=== PATIENT | male | born 1990 | race Caucasian/White ===

== ENCOUNTER 2023-10-28 07:36 | Emergency (ER) | payer OTHER, SELFPAY ==
[2023-10-28 07:49] VITALS: BP 135/83
--- NOTE | 2023-10-28 08:26 | ED.GENMED ---
History of Present Illness
General
Chief Complaint: Musculo-Skeletal Complaint
Source: patient
Time Seen by Provider: 10/28/23 08:04
History of Present Illness
History of Present Illness:
33-year-old male presents to the emergency room complaining of pain in his right foot. Pain is located specifically in the distal foot around the second digit. Patient states he awoke with pain a couple days ago. It makes it difficult for him to
walk. No fever. No specific injury. Patient denies any change in footwear. 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
Past History
Past History
ED Past Medical History: GERD, Other (Concussion X 5, gastritis) and Other (Cannabis hyperemesis syndrome)
ED Past Surgical History: Orthopedic (Dislocated knee); Negative Appendectomy
Social History
Tobacco: Former smoker
Alcohol: None
Drug: Marijuana
Personal:
Living: with family
Employment: Employed
Family History
Family History: Other (Noncontributory)
Phy Exam
Physical Exam
Physical Exam:
General: Awake, Alert, Oriented X3. No acute distress.
Vitals: unremarkable
Head: Atraumatic
Eyes: Pupils equal, EOMI
Throat: Airway intact, no exudates
Neuro: Nonfocal
Skin: Warm, dry, no rash
Extremities: pulses equal b/l, no edema. Right foot on inspection appears grossly normal. Patient indicates that area pain is primarily at the base of the second digit. Palpation of this area does elicit some pain. Range of motion of the second
toe elicits pain. There is minimal tenderness to palpation along the more proximal foot both on the plantar surface on the dorsal surface. Capillary refill is brisk.
Course
Orders/Labs/Results
Orders:
Orders
10/28/23 08:25
Ibuprofen [Motrin] 600 mg PO NOW STA
CR Foot - Right Min 3 Views Urgent
Comment:
Reason For Exam: pain distal foot and 2nd digit
10/28/23 09:10
Cast Shoe Right-Treatment ONCE
Vital Signs
Initial and Last Documented VS:
Initial Vital Signs
Temp Pulse Resp BP Pulse Ox
98.7 F 83 18 135/83 99
10/28/23 07:49 10/28/23 07:49 10/28/23 07:49 10/28/23 07:49 10/28/23 07:49
Last Documented Vital Signs
Temp Pulse Resp BP Pulse Ox
98.7 F 63 18 137/79 99
10/28/23 07:49 10/28/23 09:25 10/28/23 09:25 10/28/23 09:25 10/28/23 09:25
MDM/Problems Addressed
Differential Diagnosis Includes:
foot fracture, gout, tendinopathy
MDM/Problems Addressed:
Patient presents with foot pain. No specific injury. 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 Imaging shows no acute fracture. Physical exam suggestive of either inflammation
to the MTP joint or the tendons inserting into the second toe. Patient placed in a hard soled. Will treat with NSAIDs. Stable for discharge
*Radiology
Radiology exam reviewed: preliminary read by ED provider (Reviewed the patient's foot x-ray and see no acute disease)
*Pulse Oximetry
Patient hypoxic: no
*Critical Care Note
Total Time (30-74mins, 75-104mins- exclusive of procedures): Not Applicable
ED Attending Note
-
Portions of this chart may have been created with voice recognition software.� Occasional wrong word or��sound alike� substitutions may have occurred due to the inherent limitations of voice recognition software.
Discharge Plan
Departure
Patient Disposition: Home (Routine Discharge)
Date of Disposition: 10/28/23
Time of Disposition: 09:10
Patient with high blood pressure during this ER visit?: Yes
Condition: Good
Discharge Problem:
Acute foot pain
Instructions: Tendinopathy (DC)
Prescriptions:
No Action
promethazine 25 mg suppository
25 mg [place] Q4H PRN (Reason: nausea and vomiting) Qty: 24 0RF
ondansetron 8 mg tablet,disintegrating
8 mg PO TID PRN (Reason: nausea and vomiting) Qty: 30 0RF
promethazine 25 mg tablet
25 mg PO Q4H PRN (Reason: nausea and vomiting) Qty: 14 0RF
pantoprazole [Protonix] 40 mg tablet,delayed release (DR/EC)
40 mg PO DAILY Qty: 20 0RF
ondansetron 4 mg tablet,disintegrating
4 mg PO Q8H PRN (Reason: nausea and vomiting) 40 Days Qty: 20 0RF
ondansetron 4 mg tablet,disintegrating
4 mg PO Q8H PRN (Reason: nausea and vomiting) Qty: 10 0RF
pantoprazole [Protonix] 40 mg tablet,delayed release (DR/EC)
40 mg PO DAILY Qty: 14 0RF
Referrals:
Jack Canseco MD [Active] -
Activity Restrictions/Additional Instructions:
Your foot x-ray looks normal. I suspect you have inflammation of the tendon that connects to your 2nd toe. Use the the hard-sole shoe for the next few days. If you are not feeling better follow up with the community outreach specialist whose number is provided
on these discharge instructions.
Interventions
Interventions:
*Risk Screen - Suicide Last Done: 10/28/23 07:51
*General Assessment Last Done: 10/28/23 07:51
*Neglect/Abuse Screening Last Done: 10/28/23 07:51
ED- Fall Risk Assessment Last Done: 10/28/23 08:55
*ED COVID-19 Vaccine History Last Done: 10/28/23 09:29
*Nursing Disposition Last Done: 10/28/23 09:29
ED-Musculoskeletal Assessment Last Done: 10/28/23 08:55
Discharge Date and Time
Discharge Date/Time: 10/28/23 09:30
Print Language: SWAZI
[2023-10-28] MEDS: MOTRIN 600 MG PO (08:39)
[2023-10-28 09:25] VITALS: BP 137/79
== END 2023-10-28 09:30 | disposition home or self-care (01) ==
LOC: EMR 07:36
PROVIDERS: EMERGENCY PHYSICIAN Emergency Medicine; FAMILY PHYSICIAN Internal Medicine
DX: M79.671 Pain in right foot (principal); K21.9 Gastro-esophageal reflux disease without esophagitis; Z87.19 Personal history of other diseases of the digestive system; Z87.891 Personal history of nicotine dependence; Z90.49 Acquired absence of other specified parts of digestive tract
CPT/HCPCS: 99283; 73630; 96374; 96375; 99282

== ENCOUNTER → 2023-11-18 07:03 | Outpatient (REF) | payer OTHER, SELFPAY ==
[2023-11-18 09:51] LABS: % Immature Granulocytes 0.2 % (0-0.5); % Lymphocytes 43.3 % (20.5-51.1); % Monocytes 9.4 % (1.7-9.3); % Neutrophils 43.1 % (42.2-75.2); Absolute Basophils 0.1 10^3/uL (0-0.2); Absolute Eosinophils 0.2 10^3/uL (0-0.7); Absolute Lymphocytes 2.5 10^3/uL (1.2-3.4); Absolute Monocytes 0.5 10^3/uL (0.1-0.6); Absolute Neutrophils 2.5 10^3/uL (1.4-6.5); Hematocrit 44.7 % (39.0-52.0); Hemoglobin 15.8 g/dL (13.0-18.0); Mean Corp Hgb Conc. 35.3 g/dL (33.0-37.0); Mean Corpuscular Hgb 31.7 pg (27.0-31.0); Mean Corpuscular Volume 89.8 fL (80.0-94.0); Mean Platelet Volume 9.5 fL (7.4-10.4); Nucleated Red Blood Cells % 0 % (-); Platelet Count 259 10^3/uL (130-400); Red Blood Cell Count 4.98 10^6/uL (4.70-6.10); Red Cell Dist. Width 12.2 % (11.5-14.5); White Blood Cell Count 5.7 10^3/uL (4.8-10.8)
[2023-11-18 10:07] LABS: ALT (SGPT) 19 U/L (0-50); AST (SGOT) 26 U/L (17-59); Albumin 4.8 g/dl (3.5-5.0); Alkaline Phosphatase 70 U/L (38-126); Blood Urea Nitrogen 10 mg/dl (9-20); Calcium 9.9 mg/dl (8.4-10.2); Carbon Dioxide 27 mmol/L (22-30); Chloride 104 mmol/L (98-107); Glucose 105 mg/dl (70-99); HDL Cholesterol 50 mg/dl; LDL Cholesterol, Calculated 164 mg/dl; Potassium 4.1 mmol/L (3.5-5.1); Sodium 142 mmol/L (135-145); Total Bilirubin 0.6 mg/dl (0.2-1.3); Total Cholesterol 233 mg/dl (50-199); Total Protein 7.4 g/dl (6.3-8.2); Triglyceride 98 mg/dl (10-149); Very Low Density Lipoprotein 19 mg/dl (0-30); eGFR > 60.00
[2023-11-18 10:37] LABS: TSH Reflex To Free T4 0.96 uIU/ml (0.47-4.68)
== END ==
LOC: HWLAB 07:03
PROVIDERS: ATTENDING PHYSICIAN Internal Medicine
DX: Z00.00 Encounter for general adult medical examination without abnormal findings (principal)
CPT/HCPCS: 36415; 80053; 80061; 84443; 85025

== ENCOUNTER 2023-12-23 04:26 | Emergency (ER) | payer OTHER, SELFPAY ==
[2023-12-23 04:27] VITALS: BMI 27.5
[2023-12-23 04:30] VITALS: BP 160/97
--- NOTE | 2023-12-23 04:49 | ED.GENMED ---
History of Present Illness
General
Chief Complaint: Abdominal Symptoms
Source: patient
Exam Limitations: none
Time Seen by Provider: 12/23/23 04:36
History of Present Illness
History of Present Illness:
Pt is a 33 y/o M with pmhx of GERD and cannabinoid hyperemesis syndrome presents with complaints of vomiting and diffuse abdominal pain x 14 hrs. The pt reported that he smoked marijuana 2 days ago and woke up this morning with severe vomiting and
abdominal pain. He reports seeing blood and bile in his vomit. He has been unable to keep down liquids or foods. His last meal was wednesday night. He has associated headache, sore throat, and photophobia. Denies diarrhea, constipation, chest pain,
SOB, and cough. The pt has been seen here multiple times in the past for cannabinoid hyperemesis syndrome and he presents with similar symptoms today.
Past History
Past History
ED Past Medical History: GERD, Other (Concussion X 5, gastritis) and Other (Cannabis hyperemesis syndrome)
ED Past Surgical History: Orthopedic (Dislocated knee); Negative Appendectomy
Social History
Tobacco: Former smoker
Alcohol: None
Drug: Marijuana
Personal:
Living: with family
Employment: Employed
Family History
Family History: Other (Noncontributory)
Review of Systems
Review of Systems
Allergies reviewed?: Yes
Constitutional: Reports fatigue
EENT: Reports sore throat
Respiratory: Reports hemoptysis
Cardiac: Reports no symptoms
ABD/GI: Reports abdominal pain and vomiting
: Reports no symptoms
Musculoskeletal: Reports no symptoms
Skin: Reports no symptoms
Neurological: Reports no symptoms
Endocrine: Reports no symptoms
Hematologic/Lymphatic: Reports no symptoms
Psychiatric: Reports no symptoms
Phy Exam
General Physical Exam
General Presentation: well appearing and mild distress
General age: appears stated age
General Skin: warm and dry
General Habitus: normal
General Mental: alert
General Hydration: dry mucous membranes
ENT Exam
ENT Exam: EOMI, neck supple and pharyngeal erythema
Eye Exam
Eye Exam: PERRL, EOMI, cornea clear and conjunctiva normal
Cardiovascular Exam
Cardiovascular Exam: regular rate/rhythm and normal peripheral pulses
Pulmonary Exam
Pulmonary Exam: lungs clear, no respiratory distress, no rales, chest non tender, no crackles, no rhonchi, no stridor, no wheezing and no cough
Gastrointestinal Exam
Gastrointestinal Exam: normal bowel sounds, soft and non distended
Palpation: generalized: Mild tenderness
Neurological Exam
Neurological Exam: alert, oriented x3, CN II-XII intact, no motor deficits, normal reflexs, no sensory deficits and speech normal
Musculoskeletal Exam
Musculoskeletal Exam: full ROM, no edema and neuro vasc intact
Skin Exam
Skin Exam: normal color and warm/dry
Psychiatric Exam
Psychiatric Exam: normal mood/affect
Course
Orders/Labs/Results
Orders:
Orders
12/23/23 05:11
Lactated Ringers [Lr] 1,000 ml IV BOLUS
12/23/23 05:25
COVID-19 Antigen Urgent
Source: Nasal Swab
Complete Blood Count/With Diff Urgent
Comprehensive Metabolic Panel Urgent
Lipase Urgent
12/23/23 05:35
Promethazine [Phenergan] 25 mg 0.9% Sodium Chloride 50 ml [Nss] 50 ml IV NOW
12/23/23 06:07
Electrocardiogram (*1) Urgent
Reason for Study: QTc Monitoring
Haloperidol Lactate [Haldol] 5 mg IV NOW STA
12/23/23 06:08
EKG- Treatment ONCE
Abnormal Lab Results
12/23/23
05:25
Absolute Lymphs (auto) 0.8 L 10^3/uL
(1.2-3.4)
Neutrophils % 80.5 H %
(42.2-75.2)
Lymphocytes % 12.4 L %
(20.5-51.1)
Glucose 164 H mg/dl
(70-99)
Calcium 10.6 H mg/dl
(8.4-10.2)
Total Protein 8.8 H g/dl
(6.3-8.2)
Albumin 5.5 H g/dl
(3.5-5.0)
12/23/23 05:25
12/23/23 05:25
Vital Signs
Initial and Last Documented VS:
Initial Vital Signs
Pulse Resp BP Pulse Ox
73 18 160/97 97
12/23/23 04:30 12/23/23 04:30 12/23/23 04:30 12/23/23 04:30
Last Documented Vital Signs
Pulse Resp BP Pulse Ox
73 18 152/106 96
12/23/23 04:30 12/23/23 04:30 12/23/23 06:00 12/23/23 06:30
MDM/Problems Addressed
Differential Diagnosis Includes:
Hyperemesis
*Critical Care Note
Total Time (30-74mins, 75-104mins- exclusive of procedures): Not Applicable
Update Note
Update Note:
12/23/23, 0647: Pt reported improvement in symptoms with Phenergan. His only complaint is his sore throat.
ED Attending Note
-
Portions of this chart may have been created with voice recognition software.� Occasional wrong word or��sound alike� substitutions may have occurred due to the inherent limitations of voice recognition software.
Discharge Plan
Departure
Patient Disposition: Home (Routine Discharge)
Date of Disposition: 12/23/23
Time of Disposition: 06:50
Patient with high blood pressure during this ER visit?: No
Condition: Good
Discharge Problem:
Nausea & vomiting
Instructions: Nausea and Vomiting, Adult (DC), BLOOD PRESSURE
Prescriptions:
New
ondansetron HCl 4 mg tablet
4 mg PO Q8H PRN (Reason: nausea and vomiting) Qty: 20 0RF
No Action
promethazine 25 mg suppository
25 mg [place] Q4H PRN (Reason: nausea and vomiting) Qty: 24 0RF
ondansetron 8 mg tablet,disintegrating
8 mg PO TID PRN (Reason: nausea and vomiting) Qty: 30 0RF
promethazine 25 mg tablet
25 mg PO Q4H PRN (Reason: nausea and vomiting) Qty: 14 0RF
pantoprazole [Protonix] 40 mg tablet,delayed release (DR/EC)
40 mg PO DAILY Qty: 20 0RF
ondansetron 4 mg tablet,disintegrating
4 mg PO Q8H PRN (Reason: nausea and vomiting) 40 Days Qty: 20 0RF
ondansetron 4 mg tablet,disintegrating
4 mg PO Q8H PRN (Reason: nausea and vomiting) Qty: 10 0RF
pantoprazole [Protonix] 40 mg tablet,delayed release (DR/EC)
40 mg PO DAILY Qty: 14 0RF
Referrals:
Vish Quach I., DO [Family Provider] -
Interventions
Interventions:
*Risk Screen - Suicide Last Done: 12/23/23 04:30
*General Assessment Last Done: 12/23/23 04:30
*Neglect/Abuse Screening Last Done: 12/23/23 04:30
ED- Fall Risk Assessment Last Done: 12/23/23 06:24
*ED COVID-19 Vaccine History Last Done: 12/23/23 06:04
QQ-Rsefim-Ivyjdqxatg Assessment Last Done: 12/23/23 06:04
Discharge Date and Time
Print Language: SYRIAC
[2023-12-23 05:12] VITALS: BP 160/95
[2023-12-23] MEDS: LR 1000 IV (05:33)
[2023-12-23 05:37] LABS: % Basophils 0.1 % (0-2); % Immature Granulocytes 0.4 % (0-0.5); % Lymphocytes 12.4 % (20.5-51.1); % Monocytes 6.6 % (1.7-9.3); % Neutrophils 80.5 % (42.2-75.2); Absolute Lymphocytes 0.8 10^3/uL (1.2-3.4); Absolute Monocytes 0.5 10^3/uL (0.1-0.6); Absolute Neutrophils 5.4 10^3/uL (1.4-6.5); Hematocrit 44.5 % (39.0-52.0); Hemoglobin 15.7 g/dL (13.0-18.0); Mean Corp Hgb Conc. 35.3 g/dL (33.0-37.0); Mean Corpuscular Hgb 29.8 pg (27.0-31.0); Mean Corpuscular Volume 84.4 fL (80.0-94.0); Mean Platelet Volume 9.4 fL (7.4-10.4); Nucleated Red Blood Cells % 0 % (-); Platelet Count 293 10^3/uL (130-400); Red Blood Cell Count 5.27 10^6/uL (4.70-6.10); Red Cell Dist. Width 12.2 % (11.5-14.5); White Blood Cell Count 6.8 10^3/uL (4.8-10.8)
[2023-12-23 05:53] LABS: COVID-19 Antigen Negative (Negative)
[2023-12-23 06:00] VITALS: BP 152/106
[2023-12-23 06:02] LABS: ALT (SGPT) 21 U/L (0-50); AST (SGOT) 26 U/L (17-59); Albumin 5.5 g/dl (3.5-5.0); Alkaline Phosphatase 68 U/L (38-126); Blood Urea Nitrogen 19 mg/dl (9-20); Calcium 10.6 mg/dl (8.4-10.2); Carbon Dioxide 23 mmol/L (22-30); Chloride 99 mmol/L (98-107); Estimated Creatinine Clearance > 125 ml/min; Glucose 164 mg/dl (70-99); Lipase 70 U/L (23-300); Potassium 4.2 mmol/L (3.5-5.1); Sodium 143 mmol/L (135-145); Total Bilirubin 0.8 mg/dl (0.2-1.3); Total Protein 8.8 g/dl (6.3-8.2); eGFR > 60.00
[2023-12-23] MEDS: PHENERGAN 51 MG IV (06:03)
[2023-12-23 07:00] VITALS: BP 155/97
== END 2023-12-23 07:32 | disposition home or self-care (01) ==
LOC: EMR 04:26
PROVIDERS: EMERGENCY PHYSICIAN Emergency Medicine; FAMILY PHYSICIAN Internal Medicine
DX: R11.2 Nausea with vomiting, unspecified (principal); F12.90 Cannabis use, unspecified, uncomplicated; K21.9 Gastro-esophageal reflux disease without esophagitis; Z87.891 Personal history of nicotine dependence; Z11.52 Encounter for screening for COVID-19
CPT/HCPCS: 80053; 83690; 85025; 87811; 93005; 96365; 99284

== ENCOUNTER 2023-12-24 04:54 | Inpatient (IN) | payer OTHER, SELFPAY ==
[2023-12-23 22:24] VITALS: BP 152/100
--- NOTE | 2023-12-23 23:20 | ED.GENMED ---
History of Present Illness
General
Chief Complaint: Abdominal Symptoms
Time Seen by Provider: 12/23/23 22:37
History of Present Illness
History of Present Illness:
33-year-old male with history of marijuana abuse presenting to the emergency department for upper abdominal pain with nausea and vomiting. Patient reports symptoms have been present since yesterday afternoon. Reports that he had been smoking
marijuana up until symptom onset. Reports similar symptoms in the past, reports last episode was 2 years ago. Notes upper abdominal pain. Did notice some blood in the vomit. Denies chest pain or difficulty breathing. Denies any history of
abdominal surgeries. Denies any alcohol abuse. Last episode of vomiting was about 10 minutes ago. Denies changes in stool. Denies additional acute medical complaints
Past History
Past History
ED Past Medical History: GERD, Other (Concussion X 5, gastritis) and Other (Cannabis hyperemesis syndrome)
ED Past Surgical History: Orthopedic (Dislocated knee); Negative Appendectomy
Social History
Tobacco: Former smoker
Alcohol: None
Drug: Marijuana
Personal:
Living: with family
Employment: Employed
Family History
Family History: Other (Noncontributory)
Phy Exam
Physical Exam
Physical Exam:
General: Well-appearing, no clinical signs of dehydration, nontoxic and in no acute distress
HEENT: protecting airway
Neck: appears supple
CV: Normal heart rate, regular rhythm
Resp: No accessory muscle use, no increased work of breathing, lungs clear to auscultation bilaterally
Abd: Soft and non-distended, mild focal tenderness epigastric abdomen without rebound or guarding
Extremities: No deformities, no swelling, no erythema, pulses and sensation intact
Neuro: alert, no focal neurologic deficit
: deferred
Rectal: deferred
Psych: Normal affect
Skin: Intact
Course
Orders/Labs/Results
Orders:
Orders
12/23/23 22:50
Urinalysis Reflex To Culture Urgent
Date Specimen was Collected: 12/23/23
Time Specimen was Collected: 23:00
0.9% Sodium Chloride 1000 ml [Nss] 1,000 ml IV BOLUS
Ondansetron Injectable [Zofran] 4 mg IV NOW STA
12/23/23 22:53
Famotidine [Pepcid] 20 mg IV NOW STA
Ketorolac [Toradol] 15 mg IV NOW STA
12/23/23 23:47
Complete Blood Count/With Diff Urgent
Comprehensive Metabolic Panel Urgent
Lipase Urgent
12/24/23 00:50
Urine Microscopic Reflex Cult Urgent
12/24/23 01:09
0.9% Sodium Chloride 1000 ml [Nss] 1,000 ml IV BOLUS
12/24/23 01:10
Haloperidol Lactate [Haldol] 1 mg IV NOW STA
12/24/23 01:19
Electrocardiogram (*1) Urgent
Reason for Study: QTc Monitoring
12/24/23 01:20
EKG- Treatment ONCE
12/24/23 01:48
Promethazine [Phenergan] 12.5 mg 0.9% Sodium Chloride 50 ml [Nss] 50 ml IV NOW
12/24/23 02:00
Promethazine [Phenergan] 12.5 mg 0.9% Sodium Chloride 50 ml [Nss] 50 ml IV NOW
12/24/23 03:28
0.9% Sodium Chloride 1000 ml [Nss] 1,000 ml IV BOLUS
Abnormal Lab Results
12/23/23 12/24/23
23:47 00:50
Absolute Neuts (auto) 7.2 H 10^3/uL
(1.4-6.5)
Absolute Monos (auto) 1.0 H 10^3/uL
(0.1-0.6)
Neutrophils % 75.3 H %
(42.2-75.2)
Lymphocytes % 13.8 L %
(20.5-51.1)
Monocytes % 10.5 H %
(1.7-9.3)
Glucose 129 H mg/dl
(70-99)
Calcium 10.4 H mg/dl
(8.4-10.2)
Total Protein 8.7 H g/dl
(6.3-8.2)
Albumin 5.6 H g/dl
(3.5-5.0)
Urine Ketones 3+ A
(Negative)
Ur Occult Blood Reflex 1+ A
(Negative)
Urine Bilirubin 1+ A
(Negative)
Urine RBC 7-10 A /HPF
(0-2)
Urine Bacteria (Reflex) Few A
(Negative)
Urine Albumin (Reflex) 1+ A
(Neg - Trace)
12/23/23 23:47
12/23/23 23:47
Vital Signs
Initial and Last Documented VS:
Initial Vital Signs
Temp Pulse Resp BP Pulse Ox
98.2 F 70 18 152/100 97
12/23/23 22:24 12/23/23 22:24 12/23/23 22:24 12/23/23 22:24 12/23/23 22:24
Last Documented Vital Signs
Temp Pulse Resp BP Pulse Ox
98.2 F 74 16 139/92 96
12/23/23 22:24 12/24/23 02:45 12/24/23 02:45 12/24/23 02:00 12/24/23 02:45
MDM/Problems Addressed
MDM/Problems Addressed:
33-year-old male with history of marijuana abuse presenting to the emergency department for nausea and vomiting with upper abdominal pain. Vital signs on arrival are significant for hypertension.
On exam, patient is in no acute distress, no active emesis. Benign cardiac and pulmonary exam. On abdominal exam, mild tenderness to upper abdomen without rebound or guarding. Symptoms appear most consistent with hyperemesis cannabinoid syndrome.
On review of EMR, patient was seen this morning for the same symptoms, had interval improvement. Will repeat laboratory analysis to ensure no interval change. Will treat with IV fluids, Zofran, Toradol and reassess for improvement.
01:00 -Labs unremarkable, unchanged from prior. No leukocytosis. Patient still symptomatic, will administer additional fluids, does have ketones in his urine. Will administer Haldol.
03:30 -patient declined Haldol, had adverse reaction in the past. He had Phenergan in the past with improvement. Phenergan administered, however patient is still reporting nausea, dry heaving. At this time, patient is a failure of outpatient
therapy, intractable vomiting. Will admit for continued management given dehydration and inability to tolerate p.o.
*Critical Care Note
Total Time (30-74mins, 75-104mins- exclusive of procedures): Not Applicable
ED Attending Note
-
Portions of this chart may have been created with voice recognition software.� Occasional wrong word or��sound alike� substitutions may have occurred due to the inherent limitations of voice recognition software.
Discharge Plan
Departure
Prescriptions:
No Action
promethazine 25 mg suppository
25 mg [place] Q4H PRN (Reason: nausea and vomiting) Qty: 24 0RF
ondansetron 8 mg tablet,disintegrating
8 mg PO TID PRN (Reason: nausea and vomiting) Qty: 30 0RF
promethazine 25 mg tablet
25 mg PO Q4H PRN (Reason: nausea and vomiting) Qty: 14 0RF
pantoprazole [Protonix] 40 mg tablet,delayed release (DR/EC)
40 mg PO DAILY Qty: 20 0RF
ondansetron 4 mg tablet,disintegrating
4 mg PO Q8H PRN (Reason: nausea and vomiting) 40 Days Qty: 20 0RF
ondansetron 4 mg tablet,disintegrating
4 mg PO Q8H PRN (Reason: nausea and vomiting) Qty: 10 0RF
pantoprazole [Protonix] 40 mg tablet,delayed release (DR/EC)
40 mg PO DAILY Qty: 14 0RF
ondansetron HCl 4 mg tablet
4 mg PO Q8H PRN (Reason: nausea and vomiting) Qty: 20 0RF
Referrals:
UNKNOWN - PT DOES,NOT KNOW [Family Provider] -
Interventions
Interventions:
*Risk Screen - Suicide Last Done: 12/23/23 22:24
*General Assessment Last Done: 12/23/23 22:24
*Neglect/Abuse Screening Last Done: 12/23/23 22:24
WL-Ebpqpw-Dzsccyqrmo Assessment Last Done: 12/23/23 23:25
Discharge Date and Time
Print Language: ITALIAN
[2023-12-23 23:24] VITALS: BMI 26.8
[2023-12-23 23:27] VITALS: BP 156/97
[2023-12-23] MEDS: NSS 1000 IV (23:38)
[2023-12-23] MEDS: ZOFRAN 4 MG IV (23:38)
[2023-12-23] MEDS: TORADOL 15 MG IV (23:39)
[2023-12-23] MEDS: PEPCID 20 MG IV (23:39)
[2023-12-24] VITALS (15 sets, daily range): BP systolic 114–162; BP diastolic 72–106
[2023-12-24 00:02] LABS: % Basophils 0.1 % (0-2); % Immature Granulocytes 0.3 % (0-0.5); % Lymphocytes 13.8 % (20.5-51.1); % Monocytes 10.5 % (1.7-9.3); % Neutrophils 75.3 % (42.2-75.2); Absolute Lymphocytes 1.3 10^3/uL (1.2-3.4); Absolute Neutrophils 7.2 10^3/uL (1.4-6.5); Hemoglobin 15.8 g/dL (13.0-18.0); Mean Corp Hgb Conc. 35.9 g/dL (33.0-37.0); Mean Corpuscular Hgb 29.9 pg (27.0-31.0); Mean Corpuscular Volume 83.2 fL (80.0-94.0); Mean Platelet Volume 9.4 fL (7.4-10.4); Nucleated Red Blood Cells % 0 % (-); Platelet Count 312 10^3/uL (130-400); Red Blood Cell Count 5.29 10^6/uL (4.70-6.10); Red Cell Dist. Width 12.4 % (11.5-14.5); White Blood Cell Count 9.6 10^3/uL (4.8-10.8)
[2023-12-24 00:15] LABS: ALT (SGPT) 23 U/L (0-50); AST (SGOT) 46 U/L (17-59); Albumin 5.6 g/dl (3.5-5.0); Alkaline Phosphatase 60 U/L (38-126); Blood Urea Nitrogen 20 mg/dl (9-20); Calcium 10.4 mg/dl (8.4-10.2); Carbon Dioxide 24 mmol/L (22-30); Chloride 98 mmol/L (98-107); Estimated Creatinine Clearance > 125 ml/min; Glucose 129 mg/dl (70-99); Lipase 151 U/L (23-300); Potassium 4.1 mmol/L (3.5-5.1); Sodium 141 mmol/L (135-145); Total Bilirubin 1.1 mg/dl (0.2-1.3); Total Protein 8.7 g/dl (6.3-8.2); eGFR > 60.00
[2023-12-24 00:57] LABS: Urine Albumin 1+ (Neg - Trace); Urine Bilirubin 1+ (Negative); Urine Character Clear (Clear); Urine Color Yellow; Urine Glucose Negative (Negative); Urine Ketone 3+ (Negative); Urine Leukocyte Negative (Negative); Urine Nitrite Negative (Negative); Urine Occult Blood 1+ (Negative); Urine Specific Gravity 1.025 (<1.030); Urine Urobilinogen 1+ (Neg - 1+)
[2023-12-24 01:11] LABS: Urine Mucus Moderate
[2023-12-24 01:16] LABS: Urine White Cell 0-2 /HPF (0-5)
[2023-12-24 01:17] LABS: Urine Bacteria Few (Negative)
[2023-12-24] MEDS: NSS 1000 IV ×3 (01:17→11:02)
[2023-12-24] MEDS: PHENERGAN 50.5 MG IV (02:19)
--- NOTE | 2023-12-24 04:42 | HPS.HSE ---
Family Physician
-
Family Physician: NOT KNOW UNKNOWN - PT DOES
Chief Complaint
-
N/V, Abd Pain
History of Present Illness
Patient is a 33y M with PMH significant for cannabinoid hyperemesis who presents to ED complaining of N/V and abdominal pain x > 24 hours. Patient states that symptoms started around midday on Wednesday and have persisted / progressed since that
time. He states that he smokes marijuana daily - last use was early Wednesday. he has a prior history of hyperemesis, but notes that his last such episode was about 2 years ago.
He reports intractable N/V, no ability to tolerate PO intake for the past 36 hours. No diarrhea, fevers / chills or other focal complaints.
Medical History
Past Medical History
Past Medical History: Reports Other
Additional Past Medical History:
Cannabinoid Hyperemesis
Past Surgical History: Reports None
Social History
Tobacco: Non-smoker
Alcohol: None
Drug: Marijuana (Daily use)
Family History
Family History: Not pertinent
Allergies / Home Medications
Allergies reflects when Allergies were last updated in [facility].
Home Medications with original date entered in [facility]
Allergy/Medication List:
Allergies
Allergy/AdvReac Type Severity Reaction Status Date / Time
Sulfa (Sulfonamide Allergy Rash Verified 12/23/23 04:27
Antibiotics)
Home Medications
fluoxetine 10 mg tablet 10 mg PO DAILY 12/24/23
Review of Systems
-
History Source: Patient
A 12 point ROS was completed and negative except as noted: Yes
Constitutional: Reports Fatigue; Denies Fever or Chills
EENT: Denies Sore Throat
Respiratory: Denies Cough or Trouble Breathing
Cardiac: Denies Chest Pain or Palpitations
Abdomen/GI: Reports Abdominal Pain, Nausea, Vomiting and Anorexia; Denies Diarrhea, Constipated, Bloody Stools or Black Stools
: Denies Dysuria, Frequency or Flank Pain
Musculoskeletal: Denies Joint Pain or Edema
Neurological: Reports Headache
Physical Exam
Vital Signs
Vital Signs
Temp Pulse Resp BP Pulse Ox
98.2 F 78 21 116/73 98
12/23/23 22:24 12/24/23 03:45 12/24/23 03:45 12/24/23 03:00 12/24/23 03:45
Physical Exam
General: Other (Ill-appearing 33y M in moderate distress due to nausea / abdominal pain.)
HEENT: Other (Dry MM.)
Respiratory: Clear; No Wheezes, Rales or Rhonchi
Cardiac: S1/S2 and Regular Rhythm; No Murmur
GI: Soft, Non Distended, Normal Bowel Sounds and Other (Mildly, diffusely tender. No rebound / guarding.)
Musculoskeletal: No Clubbing, No Cyanosis and No Edema
Neuro: AO x 3
Laboratory Results
-
12/23/23 23:47
12/23/23 23:47
Laboratory Results
Total Bilirubin 1.1 mg/dl (0.2-1.3) 12/23/23 23:47
AST 46 U/L (17-59) 12/23/23 23:47
ALT 23 U/L (0-50) 12/23/23 23:47
Alkaline Phosphatase 60 U/L (38-126) 12/23/23 23:47
Lipase 151 U/L (23-300) 12/23/23 23:47
Impression/Plan
-
A/P: Patient is a 33y M with PMH significant for cannabinoid hyperemesis who presents to ED with > 24 hours of N/V and abdominal pain.
Cannabinoid Hyperemesis
- Admit for further evaluation and treatment.
- Continue supportive care including antiemetics, IVFs, pain control, etc.
- Avoid narcotics.
- Follow for clinical improvement.
- Would encourage complete cessation of THC use given history of similar severe symptoms.
Anion Gap Metabolic Acidosis
Metabolic Alkalosis
- Anion gap on initial labs is 19 with 3+ ketones in the urine.
- Likely ketoacidosis due to decreased PO intake x 2 days.
- Contraction alkalosis due to same + GI losses.
- IVFs with supplemental dextrose.
- Follow labs / lytes for improvement.
Anxiety / Depression
- Stable. Continue fluoxetine.
DVT Prophylaxis: SCDs
Code Status: Full
[2023-12-24] MEDS: TIGAN 200 MG IM (05:19)
[2023-12-24] MEDS: TORADOL 15 MG IV ×2 (05:20→18:23)
[2023-12-24] MEDS: FLUSH (NSS) 1 FLUSH IV (05:21)
[2023-12-24] MEDS: D5LR 1000 IV (05:53)
[2023-12-24 06:24] LABS: Hematocrit 39.3 % (39.0-52.0); Hemoglobin 13.9 g/dL (13.0-18.0); Mean Corp Hgb Conc. 35.4 g/dL (33.0-37.0); Mean Corpuscular Hgb 30.3 pg (27.0-31.0); Mean Corpuscular Volume 85.6 fL (80.0-94.0); Mean Platelet Volume 9.4 fL (7.4-10.4); Platelet Count 268 10^3/uL (130-400); Red Blood Cell Count 4.59 10^6/uL (4.70-6.10); Red Cell Dist. Width 12.4 % (11.5-14.5); White Blood Cell Count 8.1 10^3/uL (4.8-10.8)
[2023-12-24 06:29] LABS: Blood Urea Nitrogen 17 mg/dl (9-20); Carbon Dioxide 22 mmol/L (22-30); Chloride 105 mmol/L (98-107); Estimated Creatinine Clearance > 125 ml/min; Glucose 125 mg/dl (70-99); Magnesium 1.9 mg/dl (1.6-2.3); Sodium 141 mmol/L (135-145); eGFR > 60.00
--- NOTE | 2023-12-24 07:53 | W.PN.HOSP.TC ---
Today's Communication/Plan
-
see A/P
Assessment / Plan
Assessment / Plan
HPI: 33 yo M with PMH significant for cannabinoid hyperemesis who presented to ED complaining of N/V and abdominal pain x > 24 hours. Patient states that symptoms started around midday on Wednesday and have persisted / progressed since that
time. He stated that he smokes marijuana daily - last use was early Wednesday. He has a prior history of hyperemesis, but notes that his last such episode was about 2 years ago.
He reports intractable N/V, no ability to tolerate PO intake for the past 36 hours. No diarrhea, fevers / chills or other focal complaints.
A/P:
# Diffuse Abd pain, likely Cannabinoid Hyperemesis Syndrome
Can check UDS to confirm
Check Abd US to r/o other pathologies
Continue supportive care including antiemetics, IVFs, pain control with Tylenol and Toradol PRN, etc. Avoid narcotics.
Start trial of lidocaine cream to apply over abdomen for pain relieve. Informed to try hot shower for symptom relief.
Follow for clinical improvement.
Clears as tolerated
Would encourage complete cessation of THC use given history of similar severe symptoms.
# Mildly elevated Anion Gap Metabolic Acidosis
Likely ketoacidosis due to decreased PO intake x 2 days.
IVFs with supplemental dextrose.
Follow labs / lytes for improvement.
# Anxiety / Depression, Stable.
Continue fluoxetine.
DVT Prophylaxis: SCDs
Code Status: Full
Anticipated Discharge: 24 - 48 hours
Subjective/Interval History
-
Date of Service: December 24, 2023
Objective Data
-
Labs:
Laboratory Results
12/23/23 12/24/23
23:47 05:48
WBC 9.6 8.1
Hgb 15.8 13.9
Hct 44.0 39.3
Plt Count 312 268
Sodium 141 141
Potassium 4.1 4.0
Chloride 98 105
Carbon Dioxide 24 22
BUN 20 17
Creatinine 0.9 0.8
Glucose 129 H 125 H
Calcium 10.4 H 9.0
Total Bilirubin 1.1
AST 46
ALT 23
Alkaline Phosphatase 60
Vital Signs:
Vital Signs
Temp Pulse Resp BP Pulse Ox
36.8 C 56 19 159/95 98
12/23/23 22:24 12/24/23 07:07 12/24/23 07:07 12/24/23 05:00 12/24/23 07:07
Review of Systems
-
Abdomen/GI: Reports Abdominal Pain, Nausea and Vomiting
Physical Exam
-
General: Well Developed, Well Nourished, No Apparent Distress, Comfortable and Conversant; Negative Respiratory Distress
HEENT: Normocephalic, Atraumatic, Nose Appears Normal and Ears Appear Normal; Negative Oxygen
Respiratory: Clear to Auscultation and Non Labored Respirations; Negative Accessory Resp Muscle Use
Cardiac: Regular Rhythm and S1/S2
GI: Soft, Nondistended and Tender (diffuse)
Skin: Warm and Dry
Neuro: Awake, Alert, Oriented and AO x 3
Psych: Calm and Intact Judgement/Insight
Data Reviewed
-
Labs: Labs Reviewed by me
[2023-12-24] MEDS: LMX 4 1 APPLIC TOPICAL (08:49)
[2023-12-24] MEDS: PROZAC 10 MG PO (08:50)
[2023-12-24] MEDS: NSS (PRESERVATIVE FREE) 10 ML IV (08:51)
[2023-12-24] MEDS: PROTONIX IV 40 MG IV (08:51)
--- NOTE | 2023-12-24 12:31 | PTCARENOTE ---
pt admitted from ED to 2N. pt is a self within the room, currently receiving IVF, aaox3 and from home with his . IV capped and pt currently showering
[2023-12-24] MEDS: ZOFRAN 4 MG IV (13:05)
--- NOTE | 2023-12-24 13:49 | PTCARENOTE ---
Patient admitted from ED into room 2128. VSS, AAOx3, flat affect, c/o intractable nausea and vomiting since Wednesday r/t daily marijuana use. Patient states hospitalization for similar symptoms approximately 2 years ago. SARY cook administered -
see MAY. Patient states tenderness and cramping throughout abdomen. Patient showering in bathroom, states hot water relieves symptoms. MD updated. Patient oriented to room and call pedro.
[2023-12-24] MEDS: COMPAZINE 5 MG IV (17:15)
[2023-12-24 17:25] LABS: Amphetamines Negative (Negative); Barbiturates Negative (Negative); Benzodiazepines Negative (Negative); Buprenorphine Negative (Negative); Cocaine Negative (Negative); Marijuana Positive (Negative); Methadone Negative (Negative); Methamphetamines Negative (Negative); Opiates Negative (Negative); Phencyclidine Negative (Negative); Tricyclic Antidepressants Negative (Negative)
[2023-12-25] MEDS: NSS 1000 IV ×2 (00:56→09:54)
[2023-12-25 06:54] LABS: Hematocrit 37.8 % (39.0-52.0); Mean Corp Hgb Conc. 34.4 g/dL (33.0-37.0); Mean Corpuscular Hgb 30.2 pg (27.0-31.0); Mean Corpuscular Volume 87.9 fL (80.0-94.0); Mean Platelet Volume 9.5 fL (7.4-10.4); Platelet Count 224 10^3/uL (130-400); Red Cell Dist. Width 12.3 % (11.5-14.5); White Blood Cell Count 5.8 10^3/uL (4.8-10.8)
[2023-12-25 07:10] VITALS: BP 136/74
[2023-12-25 07:24] LABS: Blood Urea Nitrogen 14 mg/dl (9-20); Carbon Dioxide 26 mmol/L (22-30); Chloride 105 mmol/L (98-107); Estimated Creatinine Clearance > 125 ml/min; Glucose 88 mg/dl (70-99); Magnesium 2.1 mg/dl (1.6-2.3); Potassium 3.9 mmol/L (3.5-5.1); Sodium 141 mmol/L (135-145); eGFR > 60.00
[2023-12-25] MEDS: PROTONIX IV 40 MG IV (07:59)
[2023-12-25] MEDS: NSS (PRESERVATIVE FREE) 10 ML IV (07:59)
[2023-12-25] MEDS: PROZAC 10 MG PO (08:00)
[2023-12-25] MEDS: TORADOL 15 MG IV ×3 (09:49→22:19)
[2023-12-25] MEDS: ZOFRAN 4 MG IV ×3 (09:54→22:20)
--- NOTE | 2023-12-25 11:39 | W.PN.HOSP.TC ---
Today's Communication/Plan
-
see A/P
Assessment / Plan
Assessment / Plan
HPI: 33 yo M with PMH significant for cannabinoid hyperemesis who presented to ED complaining of N/V and abdominal pain x > 24 hours. Patient states that symptoms started around midday on Wednesday and have persisted / progressed since that
time. He stated that he smokes marijuana daily - last use was early Wednesday. He has a prior history of hyperemesis, but notes that his last such episode was about 2 years ago.
He reports intractable N/V, no ability to tolerate PO intake for the past 36 hours. No diarrhea, fevers / chills or other focal complaints.
A/P:
# Diffuse Abd pain, 2/2 Cannabinoid Hyperemesis Syndrome
UDS positive for marijuana
Abd US unrevealing
Continue supportive care including antiemetics, IVFs, pain control with Tylenol and Toradol PRN, etc. Avoid narcotics.
Cont trial of lidocaine cream to apply over abdomen for pain relieve. Cont hot shower for symptom relief.
Follow for clinical improvement.
Clears as tolerated
Would encourage complete cessation of THC use given history of similar severe symptoms.
# Mildly elevated Anion Gap Metabolic Acidosis, resolved
Likely ketoacidosis due to decreased PO intake x 2 days.
cont D5 NSS (pt requesting IVF with D5W)
# Anxiety / Depression, Stable.
Continue fluoxetine.
DVT Prophylaxis: SCDs
Code Status: Full
Anticipated Discharge: 24 - 48 hours
Subjective/Interval History
-
Date of Service: December 25, 2023
Objective Data
-
Labs:
Laboratory Results
12/25/23
06:16
WBC 5.8
Hgb 13.0
Hct 37.8 L
Plt Count 224
Sodium 141
Potassium 3.9
Chloride 105
Carbon Dioxide 26
BUN 14
Creatinine 0.9
Glucose 88
Calcium 9.0
Vital Signs:
Vital Signs
Temp Pulse Resp BP Pulse Ox
37.1 C 58 14 136/74 98
12/25/23 07:10 12/25/23 07:10 12/25/23 07:10 12/25/23 07:10 12/25/23 07:10
I&O
12/24/23 12/25/23 12/26/23
06:59 06:59 06:59
Intake Total 240 / 240
Balance 240 / 240
Review of Systems
-
Abdomen/GI: Reports Abdominal Pain, Nausea and Vomiting
Physical Exam
-
General: Well Developed, Well Nourished, No Apparent Distress, Comfortable and Conversant; Negative Respiratory Distress
HEENT: Normocephalic, Atraumatic, Nose Appears Normal and Ears Appear Normal; Negative Oxygen
Respiratory: Clear to Auscultation and Non Labored Respirations; Negative Accessory Resp Muscle Use
Cardiac: Regular Rhythm and S1/S2
GI: Soft, Nondistended and Tender (diffuse)
Skin: Warm and Dry
Neuro: Awake, Alert, Oriented and AO x 3
Psych: Calm and Intact Judgement/Insight
Data Reviewed
-
Ultrasound: Report Reviewed by me
Labs: Labs Reviewed by me
[2023-12-25] MEDS: NSS IV (11:53)
[2023-12-25] MEDS: D5/0.9% SODIUM CHLORIDE 1000 IV (11:53)
[2023-12-25 11:58] LABS: Glucose - Point of Care 106 mg/dl (70-99)
[2023-12-25] MEDS: LMX 4 1 APPLIC TOPICAL (12:10)
[2023-12-25] MEDS: COMPAZINE 5 MG IV (14:20)
--- NOTE | 2023-12-25 14:46 | PTCARENOTE ---
pt been having episodes of vomiting after breakfast, had a clear liquid tray, did not tolerate well PRN medications given; pt also seemed pale and sweaty BG done and it was 109; vitals within normal limits. Took several hot showers throughout shift.
[2023-12-25 15:46] VITALS: BP 158/99
--- NOTE | 2023-12-25 16:17 | CM ---
Attempted to see pt to complete initial assessment
Pt reports he doesn't feel well - nausea - + vomiting
Will attempt to see pt at another time
[2023-12-25 21:33] LABS: Amphetamines Negative (Negative); Barbiturates Negative (Negative); Benzodiazepines Negative (Negative); Buprenorphine Negative (Negative); Cocaine Negative (Negative); Marijuana Positive (Negative); Methadone Negative (Negative); Methamphetamines Negative (Negative); Opiates Negative (Negative); Phencyclidine Negative (Negative); Tricyclic Antidepressants Negative (Negative)
[2023-12-25] MEDS: BENADRYL 6.25 MG IV (22:27)
[2023-12-25 23:19] VITALS: BP 133/73
[2023-12-26] MEDS: D5/0.9% SODIUM CHLORIDE IV (00:05)
[2023-12-26] MEDS: D5/0.9% SODIUM CHLORIDE 1000 IV (01:32)
[2023-12-26] MEDS: TORADOL 15 MG IV ×3 (04:20→16:24)
[2023-12-26] MEDS: ZOFRAN 4 MG IV ×4 (04:20→22:25)
--- NOTE | 2023-12-26 04:43 | PTCARENOTE ---
Pt had no episodes of vomiting overnight. Pt stated nausea has not subsided, was medicated twice this shift for nausea & pain. VSS, safety maintained.
[2023-12-26 06:06] VITALS: BMI 27.0
[2023-12-26] MEDS: COMPAZINE 5 MG IV (06:10)
[2023-12-26 06:21] LABS: Hematocrit 42.3 % (39.0-52.0); Hemoglobin 15.1 g/dL (13.0-18.0); Mean Corp Hgb Conc. 35.7 g/dL (33.0-37.0); Mean Corpuscular Hgb 30.6 pg (27.0-31.0); Mean Corpuscular Volume 85.8 fL (80.0-94.0); Mean Platelet Volume 9.3 fL (7.4-10.4); Platelet Count 326 10^3/uL (130-400); Red Blood Cell Count 4.93 10^6/uL (4.70-6.10); Red Cell Dist. Width 11.8 % (11.5-14.5); White Blood Cell Count 8.7 10^3/uL (4.8-10.8)
[2023-12-26 06:23] LABS: Blood Urea Nitrogen 12 mg/dl (9-20); Calcium 9.8 mg/dl (8.4-10.2); Carbon Dioxide 20 mmol/L (22-30); Chloride 103 mmol/L (98-107); Estimated Creatinine Clearance > 125 ml/min; Glucose 129 mg/dl (70-99); Magnesium 1.9 mg/dl (1.6-2.3); Potassium 3.4 mmol/L (3.5-5.1); Sodium 139 mmol/L (135-145); eGFR > 60.00
[2023-12-26 07:35] VITALS: BP 163/88
--- NOTE | 2023-12-26 08:10 | W.PN.HOSP.TC ---
Today's Communication/Plan
-
see A/P
Assessment / Plan
Assessment / Plan
HPI: 33 yo M with PMH significant for cannabinoid hyperemesis who presented to ED complaining of N/V and abdominal pain x > 24 hours. Patient states that symptoms started around midday on Wednesday and have persisted / progressed since that
time. He stated that he smokes marijuana daily - last use was early Wednesday. He has a prior history of hyperemesis, but notes that his last such episode was about 2 years ago.
He reports intractable N/V, no ability to tolerate PO intake for the past 36 hours. No diarrhea, fevers / chills or other focal complaints.
A/P:
# Diffuse Abd pain, 2/2 Cannabinoid Hyperemesis Syndrome
# Anion Gap Metabolic Acidosis likely due to persistent vomiting
UDS positive for marijuana
Abd US unrevealing
Continue supportive care including antiemetics, pain control with Tylenol and Toradol PRN, etc. Avoid narcotics.
Continue IVF with bicarb
Cont trial of lidocaine cream to apply over abdomen for pain relieve. Cont hot shower for symptom relief.
Follow clinical improvement.
Clears as tolerated
Would encourage complete cessation of THC use given history of similar severe symptoms.
# Hypokalemia
replete K IV
# Anxiety / Depression, Stable.
Continue fluoxetine.
DVT Prophylaxis: SCDs
Code Status: Full
DW RN
Anticipated Discharge: 24 - 48 hours
Subjective/Interval History
-
Date of Service: December 26, 2023
Objective Data
-
Labs:
Laboratory Results
12/26/23 12/26/23
05:24 05:25
WBC 8.7
Hgb 15.1
Hct 42.3
Plt Count 326 D
Sodium 139
Potassium 3.4 L
Chloride 103
Carbon Dioxide 20 L
BUN 12
Creatinine 0.9
Glucose 129 H
Calcium 9.8
Vital Signs:
Vital Signs
Temp Pulse Resp BP Pulse Ox
37.2 C 60 16 133/73 98
12/25/23 23:19 12/25/23 23:19 12/25/23 23:19 12/25/23 23:19 12/25/23 23:19
I&O
12/25/23 12/26/23 12/27/23
06:59 06:59 06:59
Intake Total 240 / 240 3095 / 3095
Balance 240 / 240 3095 / 3095
Review of Systems
-
Abdomen/GI: Reports Abdominal Pain, Nausea and Vomiting
Physical Exam
-
General: Well Developed, Well Nourished, No Apparent Distress, Comfortable and Conversant; Negative Respiratory Distress
HEENT: Normocephalic, Atraumatic, Nose Appears Normal and Ears Appear Normal; Negative Oxygen
Respiratory: Clear to Auscultation and Non Labored Respirations; Negative Accessory Resp Muscle Use
Cardiac: Regular Rhythm and S1/S2
GI: Soft, Nondistended and Tender (diffuse)
Skin: Warm and Dry
Neuro: Awake, Alert, Oriented and AO x 3
Psych: Calm and Intact Judgement/Insight
Data Reviewed
-
Ultrasound: Report Reviewed by me
Labs: Labs Reviewed by me
[2023-12-26] MEDS: KCL 270 MEQ IV (08:19)
[2023-12-26] MEDS: NSS (PRESERVATIVE FREE) 10 ML IV (08:38)
[2023-12-26] MEDS: PROTONIX IV 40 MG IV (08:38)
[2023-12-26] MEDS: PROZAC 10 MG PO (08:38)
--- NOTE | 2023-12-26 11:56 | CM ---
Met with pt at bedside to complete initial assessment
Pt reports he lives in a 2 story home with his , son and 2 daughters
Independent, Works FT, drives
DME - none
SNF/HH - denies past hx
Has ride home at discharge
PCP - Chris Quach
Pharm - [facility]
Plan - anticipate home no needs
[2023-12-26] MEDS: SODIUM BICARBONATE 1150 MEQ IV ×2 (13:16→21:52)
[2023-12-26 15:00] VITALS: BP 143/86
[2023-12-26 23:09] VITALS: BP 146/82
[2023-12-27] MEDS: BENADRYL 25 MG PO (01:47)
[2023-12-27 06:00] VITALS: BMI 26.9
[2023-12-27 06:20] LABS: Hematocrit 40.2 % (39.0-52.0); Hemoglobin 14.6 g/dL (13.0-18.0); Mean Corp Hgb Conc. 36.3 g/dL (33.0-37.0); Mean Corpuscular Hgb 31.1 pg (27.0-31.0); Mean Corpuscular Volume 85.7 fL (80.0-94.0); Mean Platelet Volume 9.3 fL (7.4-10.4); Platelet Count 263 10^3/uL (130-400); Red Blood Cell Count 4.69 10^6/uL (4.70-6.10); Red Cell Dist. Width 11.6 % (11.5-14.5); White Blood Cell Count 5.8 10^3/uL (4.8-10.8)
[2023-12-27 06:51] LABS: Blood Urea Nitrogen 13 mg/dl (9-20); Calcium 9.2 mg/dl (8.4-10.2); Carbon Dioxide 30 mmol/L (22-30); Chloride 96 mmol/L (98-107); Estimated Creatinine Clearance > 125 ml/min; Glucose 87 mg/dl (70-99); Magnesium 1.9 mg/dl (1.6-2.3); Potassium 3.4 mmol/L (3.5-5.1); Sodium 137 mmol/L (135-145); eGFR > 60.00
[2023-12-27 07:15] VITALS: BP 126/75
[2023-12-27] MEDS: PROZAC 10 MG PO (07:33)
[2023-12-27] MEDS: NSS (PRESERVATIVE FREE) 10 ML IV (07:33)
[2023-12-27] MEDS: PROTONIX IV 40 MG IV (07:33)
[2023-12-27] MEDS: SODIUM BICARBONATE 1150 MEQ IV (07:58)
[2023-12-27] MEDS: KCL 270 MEQ IV (07:58)
[2023-12-27] MEDS: VALIUM 2 MG PO ×2 (08:11→12:23)
[2023-12-27] MEDS: REGLAN 10 MG IV (08:11)
--- NOTE | 2023-12-27 08:15 | W.PN.HOSP.TC ---
Today's Communication/Plan
-
no vomiting overnight, yesterday did not tolerate diet - reattempt today
potassium
Reglan
valium
avoid NSAIDs
Assessment / Plan
Assessment / Plan
33yo with PMHx of MDD and medical marijuana use came with nausea and vomiting with minor hematemesis on admission. Symptoms similar to the previous episodes when he was diagnosed cannabinoid hyperemesis syndrome. US abd unremarkable for acute
findings, lipase neg, had very slow immprovement in symptoms. No more hematemesis with stable hgb. Patient had Hx of EGD 2-3years ago as per patient - without significant findings.
A/P:
#Cannabis hyperemesis syndrome
antiemmetics
hydration
advance diet as tolerated
Counseled on abstinence from cannabinoids
#Hematemesis on admission
resolved
probably Roula-Nithin
No odynophagia noted
Recommended outpatient EGD - patient will schedule with established GI - he verbalized understanding
PPI
Avoid NSAIDs since might cause worsening of gastritis and worsening of the epigastric pain
#MDD
not depressed
cont home meds
#Hypokelemia
replete and follow
DVT ppx SCDs
Full code
I have spent at least 58min reviewing chart, test results, communicating with consultants and direct patient care
Anticipated Discharge: Within 24 hours
Subjective/Interval History
-
Date of Service: December 27, 2023
Objective Data
-
Labs:
Laboratory Results
12/27/23
05:43
WBC 5.8
Hgb 14.6
Hct 40.2
Plt Count 263
Sodium 137
Potassium 3.4 L
Chloride 96 L
Carbon Dioxide 30
BUN 13
Creatinine 0.9
Glucose 87
Calcium 9.2
Vital Signs:
Vital Signs
Temp Pulse Resp BP Pulse Ox
98.0 F 63 18 146/82 98
12/26/23 23:09 12/26/23 23:09 12/26/23 23:09 12/26/23 23:09 12/26/23 23:09
I&O
12/26/23 12/27/23 12/28/23
06:59 06:59 06:59
Intake Total 4055 / 4055 970 / 970
Balance 4055 / 4055 970 / 970
Review of Systems
-
History Source: Patient
All other systems: Reviewed and negative
Abdomen/GI: Reports Abdominal Pain (epigastric), Nausea and Vomiting
Physical Exam
-
General: No Apparent Distress
HEENT: Moist Mucous Membranes
GI: Soft, Nondistended, Normal Bowel Sounds, Tender (in epigastric are) and Other (passing gas)
Musculoskeletal: No Clubbing, No Cyanosis and No Edema
Neuro: Awake, Alert, Oriented, AO x 3 and Nonfocal/Grossly Intact
Psych: Calm
[2023-12-27 08:45] LABS: TSH Reflex To Free T4 0.47 uIU/ml (0.47-4.68)
[2023-12-27 08:55] LABS: Glycohemoglobin (HgbA1c) 5.4 % (4.0-5.6)
[2023-12-27] MEDS: ZOFRAN 4 MG IV (12:24)
--- NOTE | 2023-12-27 13:03 | CM ---
Patient seen at bedside.
advance diet as tolerated.
CM gave authorization to release medical records form to patient.
no anticipated needs.
PLAN: Discharge to home when stable, no needs anticipated.
--- NOTE | 2023-12-27 15:02 | W.DCSUMMARY ---
Discharge Summary
Discharge Data
Date of Admission: 12/24/23
Date of Discharge: 12/27/23
-
Pending Results: No
Hospital Course
33yo with PMHx of MDD and medical marijuana use came with nausea and vomiting with minor hematemesis on admission. Symptoms similar to the previous episodes when he was diagnosed cannabinoid hyperemesis syndrome. US abd unremarkable for acute
findings, lipase neg, had very slow immprovement in symptoms. No more hematemesis with stable hgb. Patient had Hx of EGD 2-3years ago as per patient - without significant findings. Tolerated food and liquis orally without vomiting on the day of
D/C. Upon d/c use few doses of Valium and Zofran if still symptomatic. Medically stable for d/c
I have spent at least 38min discharging the patient
Patient was managed for:
#Cannabis hyperemesis syndrome
#Hematemesis on admission
#MDD
#Hypokalemia
Discharge Plan
-
Patient Disposition: Home (Routine Discharge)
Discharge Diagnosis/Procedures: cannabinoid hyperemesis
Diet: As tolerated
Activity: As tolerated
Driving Restrictions: As prior to admission
Referrals:
UNKNOWN - PT DOES,NOT KNOW [Family Provider] -
Prescriptions:
New
diazepam [Valium] 2 mg tablet
2 mg PO BIDPRN PRN (Reason: nausea) Qty: 4 0RF
ondansetron 4 mg tablet,disintegrating
4 mg PO Q8H PRN (Reason: nausea and vomiting) Qty: 9 0RF
pantoprazole 40 mg tablet,delayed release (DR/EC)
40 mg PO DAILY Qty: 30 0RF
Continued
fluoxetine 10 mg Tablet
10 mg PO DAILY
Discharge Orders:
Discharge Patient (As Directed); Ordered 12/27/23
Ordered By: Maicol Sutherland
Discharge Date and Time
Print Language: AMERICAN
[2023-12-27 15:10] VITALS: BP 148/82
--- NOTE | 2023-12-27 16:42 | PTCARENOTE ---
Patient discharged home. This RN removed patient's IV and reviewed discharge instructions with patient and patient's mother at bedside, both verbalize understanding. Paper scripts for PO zofran and valium per MD handed to patient by this RN. Patient
gathered belongings in room and dressed independently. Patient being transported home by mother, taken down to car at [facility] via staff escort and wheelchair.
[2023-12-27 16:46] VITALS: BP 148/82
== END 2023-12-27 17:06 | disposition home or self-care (01) | DRG 896 ==
LOC: 2 NORTH 04:54
PROVIDERS: Internal Medicine; ADMITTING PHYSICIAN Hospitalist; ATTENDING PHYSICIAN Internal Medicine; EMERGENCY PHYSICIAN Student in an Organized Health Care Education/Training Program
DX: F12.188 Cannabis abuse with other cannabis-induced disorder (principal); K22.6 Gastro-esophageal laceration-hemorrhage syndrome; E87.4 Mixed disorder of acid-base balance; F32.9 Major depressive disorder, single episode, unspecified; R11.2 Nausea with vomiting, unspecified; E87.6 Hypokalemia; F41.9 Anxiety disorder, unspecified; K21.9 Gastro-esophageal reflux disease without esophagitis; Z79.899 Other long term (current) drug therapy; Z87.19 Personal history of other diseases of the digestive system; Z87.891 Personal history of nicotine dependence
CPT/HCPCS: 76700; 80048; 80053; 80306; 81003; 81015; 82962; 83036; 83690; 83735; 84100; 84443; 85025; 85027; 93005; 96361; 96365; 96375; 99285

== ENCOUNTER 2024-06-22 09:20 | Emergency (ER) | payer OTHER, SELFPAY ==
[2024-06-22 09:28] VITALS: BP 164/96
[2024-06-22] MEDS: ZOFRAN 4 MG IV ×2 (10:36→12:19)
[2024-06-22] MEDS: ATIVAN 1 MG IV (10:36)
[2024-06-22] MEDS: NSS 1000 IV (10:36)
--- NOTE | 2024-06-22 10:52 | ED.GENMED ---
History of Present Illness
General
Chief Complaint: Abdominal Symptoms
Source: patient
Exam Limitations: none
Time Seen by Provider: 06/22/24 10:18
Nursing documentation reviewed up to this point in time: agreed with
History of Present Illness
History of Present Illness:
Patient with history of cannabinoid induced hyperemesis syndrome, who is currently still utilizing marijuana daily, presents to ED secondary to persistent nausea and vomiting, shortly after having tuna bites for lunch yesterday afternoon. Denies
fever or chills. Denies diarrhea. Denies abdominal pain. Denies chest pain. Denies shortness of breath. Denies dizziness. Patient states that his symptoms are similar to previous episodes related to cannabinoid hyperemesis syndrome.
Past History
Past History
ED Past Medical History: GERD, Other (Concussion X 5, gastritis) and Other (Cannabis hyperemesis syndrome)
ED Past Surgical History: Orthopedic (Dislocated knee); Negative Appendectomy
Social History
Tobacco: Former smoker
Alcohol: None
Drug: Marijuana
Personal:
Living: with family
Employment: Employed
Family History
Family History: Other (Noncontributory)
Review of Systems
Review of Systems
Allergies reviewed?: Yes
All Other Systems: ROS reviewed and negative except as documented in HPI and ROS
Constitutional: Reports no symptoms; Denies fever or chills
Respiratory: Reports no symptoms; Denies trouble breathing
Cardiac: Reports no symptoms; Denies palpitations
ABD/GI: Reports nausea and vomiting; Denies abdominal pain or diarrhea
Musculoskeletal: Reports no symptoms
Neurological: Reports no symptoms; Denies dizzy or headache
Phy Exam
Physical Exam
Physical Exam:
Physical Exam
General: no apparent distress, not acutely ill. afebrile
Head: nc/at. eomi
Neck: supple. normal range of motion.
Heart: s1/s2 regular rate and rhythm, no murmur.
Lungs: no acute respiratory distress. clear bilaterally
Abdomen: normal bowel sounds. not tender. no distention
Neuro: alert and oriented x 3. no focal neurological deficits
Skin: no rash
Psychiatric: well kept. interactive and cooperative
Extremities: no edema. no calf tenderness.
Course
Orders/Labs/Results
Orders:
Orders
06/22/24 10:30
0.9% Sodium Chloride 1000 ml [Nss] 1,000 ml IV BOLUS
Lorazepam [Ativan] 1 mg IV NOW STA
Ondansetron Injectable [Zofran] 4 mg IV NOW STA
06/22/24 10:35
Complete Blood Count/With Diff Urgent
Comprehensive Metabolic Panel Urgent
Magnesium Urgent
06/22/24 12:02
Ondansetron Injectable [Zofran] 4 mg IV NOW STA
Pantoprazole [Protonix IV] 40 mg IV NOW STA
06/22/24 12:03
Lactated Ringers [Lr] 500 ml IV BOLUS
Abnormal Lab Results
06/22/24
10:35
WBC 12.3 H 10^3/uL
(4.8-10.8)
Absolute Neuts (auto) 9.4 H 10^3/uL
(1.4-6.5)
Absolute Monos (auto) 1.3 H 10^3/uL
(0.1-0.6)
Neutrophils % 76.7 H %
(42.2-75.2)
Lymphocytes % 11.9 L %
(20.5-51.1)
Monocytes % 10.9 H %
(1.7-9.3)
BUN 22 H mg/dl
(9-20)
Glucose 159 H mg/dl
(70-99)
Calcium 11.0 H mg/dl
(8.4-10.2)
Total Protein 9.4 H g/dl
(6.3-8.2)
Albumin 5.6 H g/dl
(3.5-5.0)
06/22/24 10:35
06/22/24 10:35
Vital Signs
Initial and Last Documented VS:
Initial Vital Signs
Temp Pulse Resp BP Pulse Ox
98.4 F 89 18 164/96 97
06/22/24 09:28 06/22/24 09:28 06/22/24 09:28 06/22/24 09:28 06/22/24 09:28
Last Documented Vital Signs
Temp Pulse Resp BP Pulse Ox
98.4 F 89 18 164/96 97
06/22/24 09:28 06/22/24 09:28 06/22/24 09:28 06/22/24 09:28 06/22/24 09:28
MDM/Problems Addressed
MDM/Problems Addressed:
Patient reports improvement in symptoms after treatment, and is without any further vomiting episodes during observation ED. Patient otherwise remains afebrile, hemodynamically stable, and nontoxic-appearing. Repeat abdominal exam: Soft and
nontender. Patient with likely recurrent vomiting episodes secondary to continual use of marijuana. No indication for any further work up at this time. As such, patient strongly recommended to stop utilizing marijuana along with continual
hydration at home.
*Critical Care Note
Total Time (30-74mins, 75-104mins- exclusive of procedures): Not Applicable
ED Attending Note
-
Portions of this chart may have been created with voice recognition software.� Occasional wrong word or��sound alike� substitutions may have occurred due to the inherent limitations of voice recognition software.
Discharge Plan
Departure
Patient Disposition: Home (Routine Discharge)
Date of Disposition: 06/22/24
Time of Disposition: 12:16
Patient with high blood pressure during this ER visit?: Yes
Discharge Problem:
Nausea & vomiting
Instructions: Nausea and Vomiting, Adult (DC)
Prescriptions:
New
ondansetron 4 mg Tablet,Disintegrating
4 mg PO TIDPRN PRN (Reason: nausea/vomiting) Qty: 12 0RF
No Action
fluoxetine 10 mg Tablet
10 mg PO DAILY
diazepam [Valium] 2 mg tablet
2 mg PO BIDPRN PRN (Reason: nausea) Qty: 4 0RF
ondansetron 4 mg tablet,disintegrating
4 mg PO Q8H PRN (Reason: nausea and vomiting) Qty: 9 0RF
pantoprazole 40 mg tablet,delayed release (DR/EC)
40 mg PO DAILY Qty: 30 0RF
Referrals:
Vish Quach I., DO [Family Provider] -
Activity Restrictions/Additional Instructions:
As discussed, please follow-up with your primary care physician with any further concerns. Your prescription has been sent electronically to [facility] in [place].
Interventions
Interventions:
*Risk Screen - Suicide Last Done: 06/22/24 09:28
*General Assessment Last Done: 06/22/24 09:28
*Neglect/Abuse Screening Last Done: 06/22/24 09:28
*ED- Fall Risk Assessment Last Done: 06/22/24 11:57
*ED COVID-19 Vaccine History Last Done: 06/22/24 09:28
*Nursing Disposition Last Done: 06/22/24 13:10
GX-Uppqoz-Kkewridrah Assessment Last Done: 06/22/24 10:44
Discharge Date and Time
Discharge Date/Time: 06/22/24 13:11
Print Language: UPPER SORBIAN
[2024-06-22 10:54] LABS: % Basophils 0.2 % (0-2); % Immature Granulocytes 0.3 % (0-0.5); % Lymphocytes 11.9 % (20.5-51.1); % Monocytes 10.9 % (1.7-9.3); % Neutrophils 76.7 % (42.2-75.2); Absolute Lymphocytes 1.5 10^3/uL (1.2-3.4); Absolute Monocytes 1.3 10^3/uL (0.1-0.6); Absolute Neutrophils 9.4 10^3/uL (1.4-6.5); Hematocrit 46.8 % (39.0-52.0); Hemoglobin 16.8 g/dL (13.0-18.0); Mean Corp Hgb Conc. 35.9 g/dL (33.0-37.0); Mean Corpuscular Hgb 30.8 pg (27.0-31.0); Mean Corpuscular Volume 85.7 fL (80.0-94.0); Mean Platelet Volume 8.7 fL (7.4-10.4); Nucleated Red Blood Cells % 0 % (-); Platelet Count 349 10^3/uL (130-400); Red Blood Cell Count 5.46 10^6/uL (4.70-6.10); Red Cell Dist. Width 12.7 % (11.5-14.5); White Blood Cell Count 12.3 10^3/uL (4.8-10.8)
[2024-06-22 11:09] LABS: ALT (SGPT) 27 U/L (0-50); AST (SGOT) 41 U/L (17-59); Albumin 5.6 g/dl (3.5-5.0); Alkaline Phosphatase 72 U/L (38-126); Blood Urea Nitrogen 22 mg/dl (9-20); Carbon Dioxide 22 mmol/L (22-30); Chloride 103 mmol/L (98-107); Glucose 159 mg/dl (70-99); Magnesium 1.6 mg/dl (1.6-2.3); Potassium 4.2 mmol/L (3.5-5.1); Sodium 143 mmol/L (135-145); Total Bilirubin 1.3 mg/dl (0.2-1.3); Total Protein 9.4 g/dl (6.3-8.2); eGFR > 60.00
[2024-06-22] MEDS: LR 500 IV (12:18)
[2024-06-22] MEDS: PROTONIX IV 40 MG IV (12:19)
== END 2024-06-22 13:11 | disposition home or self-care (01) ==
LOC: EMR 09:20
PROVIDERS: EMERGENCY PHYSICIAN Emergency Medicine; FAMILY PHYSICIAN Internal Medicine
DX: R11.2 Nausea with vomiting, unspecified (principal); F12.90 Cannabis use, unspecified, uncomplicated; Z87.891 Personal history of nicotine dependence
CPT/HCPCS: 96374; 96375; 96376; 96361; 99284; 80053; 83735; 85025

== ENCOUNTER 2024-06-23 13:00 | Observation (INO) | payer OTHER, SELFPAY ==
[2024-06-23] VITALS (7 sets, daily range): BP systolic 110–177; BP diastolic 67–103; BMI 26.8; BMI 27.6
--- NOTE | 2024-06-23 09:35 | ED.GENMED ---
History of Present Illness
General
Chief Complaint: Abdominal Symptoms
Source: patient and records
Exam Limitations: none
Time Seen by Provider: 06/23/24 09:23
Nursing documentation reviewed up to this point in time: agreed with
History of Present Illness
History of Present Illness:
34-year-old male with past medical history of GERD, cyclic vomiting/cannabinoid hyperemesis, daily marijuana use presents to the ER for evaluation of nausea and vomiting, abdominal discomfort. Patient notably seen yesterday for similar�suspected to
be cannabinoid hyperemesis syndrome; he was treated symptomatically (Zofran x 2, Ativan, Protonix, IV fluids) and was discharged. He says that when he returned home he was unable to eat or drink anything and was vomiting all night and so he came
back to the emergency room this morning. He has had some epigastric discomfort. Denies fever or chills. Denies chest pain. He has headache. Denies other complaints.
Past History
Past History
ED Past Medical History: GERD, Other (Concussion X 5, gastritis) and Other (Cannabis hyperemesis syndrome)
ED Past Surgical History: Orthopedic (Dislocated knee); Negative Appendectomy
Social History
Tobacco: Former smoker
Alcohol: None
Drug: Marijuana
Personal:
Living: with family
Employment: Employed
Family History
Family History: Other (Noncontributory)
Review of Systems
Review of Systems
All Other Systems: ROS reviewed and negative except as documented in HPI and ROS
Constitutional: Denies fever or chills
Respiratory: Denies trouble breathing
Cardiac: Denies chest pain
ABD/GI: Reports abdominal pain, nausea and vomiting; Denies diarrhea or constipated
: Denies flank pain
Musculoskeletal: Denies neck pain or back pain
Neurological: Reports headache; Denies dizzy
Phy Exam
Physical Exam
Physical Exam:
General: Awake, alert, sitting in room with cloth over his eyes holding emesis bag
Head: Normocephalic, atraumatic
Eyes: Conjunctiva normal, sclera anicteric, pupils equal round and reactive to light bilaterally
Throat: Airway intact, dry mucous membranes
Neck: Trachea midline, supple without meningismus
Lungs: Clear to auscultation bilaterally, no wheezing, rales, rhonchi
Heart: Regular rate and rhythm, no murmurs, gallops, or rubs
Abd: Soft, non distended, mildly tender in the epigastrium
Neuro: No gross deficits
Skin: no rash
Extremities: No edema in extremities, equal pulses in all extremities
Scores
Heart Failure Risk
Heart Failure Risk Score: Not Applicable
Heart Score for Chest Pain Patients
STEMI patient?: Not applicable
Withdrawal Assessment of Alcohol
Withdrawal Assessment Completed?: Not applicable
Course
Orders/Labs/Results
Orders:
Orders
06/23/24 09:25
CT Abd/pelvis W Iv Cont Urgent
Comment:
Reason For Exam: abd pain, N/V
06/23/24 09:30
0.9% Sodium Chloride 1000 ml [Nss] 1,000 ml IV BOLUS
Ketorolac [Toradol] 15 mg IV NOW STA
Ondansetron Injectable [Zofran] 4 mg IV NOW STA
06/23/24 09:36
Alcohol Urgent
Complete Blood Count/With Diff Urgent
Comprehensive Metabolic Panel Urgent
Lipase Urgent
06/23/24 09:40
Electrocardiogram (*1) Urgent
Reason for Study: QTc Monitoring
EKG- Treatment ONCE
06/23/24 11:39
Ondansetron Injectable [Zofran] 4 mg IV NOW STA
06/23/24 11:42
Urine Drug Abuse Screen Routine
06/23/24 12:16
Admit/Transfer Patient As Directed
Co-Sign Provider:
Level of Care: Observation services
Assign to:: Medical/Surgical
Physician / Group: Chelsey/hospitalist
Diagnosis: N/V, suspect cyclic vomiting
Code Status As Directed
Resuscitation Status: Full Code
PRN Pain Medication Management As Directed
May give lesser potent ordered pain med per pt: Yes
preference::
Protocol:: Medication orders for pain may be administered in a
manner that supports deferring to patient preference
when the pt is:
- Requesting an ordered lesser potent pain medication.
Least to most potent pain medications are defined
as: acetaminophen < NSAID < tramadol < opioids
(morphine, oxycodone, hydromorphone).
- Requesting a lesser dose of the same medication IF
ORDERED.
- Requesting a less intrusive route of administration
if both routes are prescribed by the provider (PO <
IV).
Abnormal Lab Results
06/23/24
09:36
WBC 10.9 H 10^3/uL
(4.8-10.8)
Absolute Neuts (auto) 8.9 H 10^3/uL
(1.4-6.5)
Absolute Monos (auto) 0.7 H 10^3/uL
(0.1-0.6)
Neutrophils % 81.3 H %
(42.2-75.2)
Lymphocytes % 11.6 L %
(20.5-51.1)
BUN 22 H mg/dl
(9-20)
Glucose 142 H mg/dl
(70-99)
Calcium 10.3 H mg/dl
(8.4-10.2)
Total Bilirubin 1.5 H mg/dl
(0.2-1.3)
AST 83 H U/L
(17-59)
Total Protein 8.6 H g/dl
(6.3-8.2)
Albumin 5.2 H g/dl
(3.5-5.0)
06/23/24 09:36
06/23/24 09:36
Vital Signs
Initial and Last Documented VS:
Initial Vital Signs
Temp Pulse Resp BP Pulse Ox
36.9 C 75 18 139/103 99
06/23/24 09:10 06/23/24 09:10 06/23/24 09:10 06/23/24 09:10 06/23/24 09:10
Last Documented Vital Signs
Temp Pulse Resp BP Pulse Ox
36.9 C 85 16 177/85 98
06/23/24 09:10 06/23/24 10:36 06/23/24 10:36 06/23/24 10:36 06/23/24 10:36
MDM/Problems Addressed
Differential Diagnosis Includes:
Gastritis/enteritis, hepatitis, pancreatitis, cholelithiasis, cyclic vomiting/cannabinoid hyperemesis syndrome
MDM/Problems Addressed:
34-year-old male returns to the emergency room with nausea and vomiting, epigastric discomfort. History of multiple visits for similar�admission in December 2023 and ER visit yesterday. Previously attributed to cannabinoid hyperemesis syndrome;
admits to continued marijuana use. Last imaging of the abdomen was prior to December 2023 admission had an ultrasound of the upper abdomen which was unremarkable. Will plan to check CT of the abdomen pelvis. Check repeat labs CBC, CMP, lipase.
Provide fluids, antiemetic, Toradol for pain. Reassess after the above.
Labs reviewed: CBC shows marginal leukocytosis 10.9. CMP shows acceptable renal function. T. bili marginal, AST marginal. Lipase normal. CT abdomen pelvis shows wedge-shaped area of decreased enhancement in the left lobe of the liver which was
present on prior CT in 2019 more conspicuous today. No signs of portal venous thrombus. No evidence of mass lesion. No other acute abnormalities. Reviewed CT with GI�unlikely of acute clinical significance, will need follow-up MR as outpatient
but no emergent follow-up needed. On clinical reassessment unfortunately patient vomited again and CT after initial Zofran. He does not feel well enough to go home thinks he needs to stay in the hospital he is very concerned that even if we can
better control his symptoms that he will rebound once again. Will plan to admit for symptomatic treatment at this point given failure of outpatient management, working diagnosis is cannabinoid hyperemesis syndrome.
Chronic conditions affecting care:
Marijuana use, GERD
Acute Exacerbation and/or Progression of Chronic Illness:
Acutely hypertensive no signs or symptoms of hypertensive crisis�hold on emergent antihypertensives
Acute Exacerbation and/or Progression of Chronic Illness: HTN
*Radiology
Radiology exam reviewed: radiology read reviewed
*Pulse Oximetry
Patient hypoxic: no
*Critical Care Note
Total Time (30-74mins, 75-104mins- exclusive of procedures): Not Applicable
Data Reviewed
Review of Other/Old Records Reveals: Labs, Records and Discharge Summary
Source: records
Patient Management
Discussion with other providers: Hospitalist (Discussed with hospitalist) and Physician Scientist (Discussed with GI)
Escalation/DeEscalation of care consider admission/obs:
Admission indicated
ED Attending Note
-
Portions of this chart may have been created with voice recognition software.� Occasional wrong word or��sound alike� substitutions may have occurred due to the inherent limitations of voice recognition software.
Discharge Plan
Departure
Patient Disposition: Admit
Date of Disposition: 06/23/24
Time of Disposition: 11:36
Admit to doctor: Ena
Presentation/result/management discussed w/ accepting MD/DO: Hospitalist
Discharge Problem:
Nausea & vomiting, Dehydration
Interventions
Interventions:
*Risk Screen - Suicide Last Done: 06/23/24 09:10
*General Assessment Last Done: 06/23/24 09:10
*Neglect/Abuse Screening Last Done: 06/23/24 09:10
*ED- Fall Risk Assessment Last Done: 06/23/24 09:56
*ED COVID-19 Vaccine History Last Done: 06/23/24 09:55
FX-Ufmdtg-Rxrgvtumwl Assessment Last Done: 06/23/24 09:55
[2024-06-23] MEDS: NSS 1000 IV ×2 (09:46→15:54)
[2024-06-23] MEDS: ZOFRAN 4 MG IV ×2 (09:47→12:00)
[2024-06-23] MEDS: TORADOL 15 MG IV ×2 (09:47→22:15)
[2024-06-23 09:50] LABS: % Basophils 0.3 % (0-2); % Immature Granulocytes 0.3 % (0-0.5); % Lymphocytes 11.6 % (20.5-51.1); % Monocytes 6.5 % (1.7-9.3); % Neutrophils 81.3 % (42.2-75.2); Absolute Lymphocytes 1.3 10^3/uL (1.2-3.4); Absolute Monocytes 0.7 10^3/uL (0.1-0.6); Absolute Neutrophils 8.9 10^3/uL (1.4-6.5); Hemoglobin 15.6 g/dL (13.0-18.0); Mean Corp Hgb Conc. 35.5 g/dL (33.0-37.0); Mean Corpuscular Hgb 30.8 pg (27.0-31.0); Mean Platelet Volume 8.9 fL (7.4-10.4); Nucleated Red Blood Cells % 0 % (-); Platelet Count 299 10^3/uL (130-400); Red Blood Cell Count 5.06 10^6/uL (4.70-6.10); Red Cell Dist. Width 12.7 % (11.5-14.5); White Blood Cell Count 10.9 10^3/uL (4.8-10.8)
[2024-06-23 10:09] LABS: ALT (SGPT) 35 U/L (0-50); AST (SGOT) 83 U/L (17-59); Albumin 5.2 g/dl (3.5-5.0); Alkaline Phosphatase 65 U/L (38-126); Blood Urea Nitrogen 22 mg/dl (9-20); Calcium 10.3 mg/dl (8.4-10.2); Carbon Dioxide 27 mmol/L (22-30); Chloride 102 mmol/L (98-107); Estimated Creatinine Clearance > 125 ml/min; Glucose 142 mg/dl (70-99); Lipase 91 U/L (23-300); Sodium 141 mmol/L (135-145); Total Bilirubin 1.5 mg/dl (0.2-1.3); Total Protein 8.6 g/dl (6.3-8.2); eGFR > 60.00
[2024-06-23 10:10] LABS: Alcohol None Detected
--- NOTE | 2024-06-23 11:42 | HPS.HSE ---
Family Physician
-
Family Physician: Vish Quach
Chief Complaint
-
N/V
History of Present Illness
HPI: 34-year-old male with past medical history of GERD, cyclic vomiting/cannabinoid hyperemesis, daily marijuana use; presented with nausea, vomiting, and abdominal discomfort.
Patient was seen the day prior for similar symptoms- suspected cannabinoid hyperemesis syndrome. He was treated symptomatically (Zofran x 2, Ativan, Protonix, IV fluids) and was discharged.
He returned due to persistent symptoms (N/V) and was unable to keep food down. His last use of marijuana was about 2 to 3 days prior to admission.
Medical History
Past Medical History
Past Medical History: Reports Other
Additional Past Medical History:
Cannabinoid Hyperemesis
GERD
Past Surgical History: Reports None
Social History
Tobacco: Non-smoker
Alcohol: Occasional
Drug: Marijuana (Daily use)
Living: With Family
Family History
Family History: Not pertinent
Allergies / Home Medications
Allergies reflects when Allergies were last updated in [facility].
Home Medications with original date entered in [facility]
Allergy/Medication List:
Medications on admission are unable to be verified or confirmed at this time.
Review of Systems
-
Abdomen/GI: Reports See HPI, Nausea and Vomiting
Physical Exam
Vital Signs
Vital Signs
Temp Pulse Resp BP Pulse Ox
36.9 C 85 16 177/85 98
06/23/24 09:10 06/23/24 10:36 06/23/24 10:36 06/23/24 10:36 06/23/24 10:36
Physical Exam
General: Well Developed, Well Nourished, No Apparent Distress and Conversant
HEENT: NormoCephalic, Moist mucous membranes and Atraumatic
Respiratory: Clear and Non Labored Respirations; No Accessory Resp Muscle Use
Cardiac: S1/S2 and Regular Rhythm; No Murmur or Rub
GI: Soft, Non Tender, Non Distended and Normal Bowel Sounds; No Organomegaly
Rectal: Deferred by Provider
Musculoskeletal: No Clubbing and No Edema
Skin: No Rash
Neuro: Awake and Alert
Psych: Calm and Intact Judgment/Insight
Laboratory Results
-
06/23/24 09:36
06/23/24 09:36
Laboratory Results
Total Bilirubin 1.5 mg/dl (0.2-1.3) H 06/23/24 09:36
AST 83 U/L (17-59) H 06/23/24 09:36
ALT 35 U/L (0-50) 06/23/24 09:36
Alkaline Phosphatase 65 U/L (38-126) 06/23/24 09:36
Lipase 91 U/L (23-300) 06/23/24 09:36
Data Reviewed
-
CT Scan: Report Reviewed by me
Lab Data: Labs Reviewed by me
Impression/Plan
-
HPI: 34-year-old male with past medical history of GERD, cyclic vomiting/cannabinoid hyperemesis, daily marijuana use; presented with nausea, vomiting, and abdominal discomfort.
Patient was seen the day prior for similar symptoms- suspected cannabinoid hyperemesis syndrome. He was treated symptomatically (Zofran x 2, Ativan, Protonix, IV fluids) and was discharged.
He returned due to persistent symptoms (N/V) and was unable to keep food down. His last use of marijuana was about 2 to 3 days prior to admission.
CT AP:
Subtle wedge-shaped decreased enhancement within the medial segment of the left lobe liver, subtly present on prior CT, although not as conspicuous. The appearance would be compatible with a perfusion anomaly, with no evidence for associated mass
lesion. No evidence for branch portal vein thrombosis.
A/P:
# N/V/Abd pain likely vomiting/cannabinoid hyperemesis
# h/o vomiting/cannabinoid hyperemesis, daily marijuana use
# GERD
Check UDS
CT AP report as above
Lipase WNL at 91
Mild AST elevation, cont to monitor
NPO with IVF NSS
IV Zofran PRN
Informed about hot shower to relieve GI symptoms,
Can use trial of lidocaine cream to apply to anterior abdomen for cyclic vomiting symptom
Cont PPI IV while NPO
# Incidental finding of left liver wedge shape decreased enhancement
ED discussed with GI, recc outpt follow up
DVT ppx: SCD
FC
--- NOTE | 2024-06-23 12:02 | CM ---
Addendum entered by Nicky Ng 06/23/24 14:22:
Patient seen in ED and provided OBS form. Patient signed form and form was given to test clerk for scanning to chart.
Original Note:
Patient seen at bedside in ED. Patient vomiting. Patient stated that he lives with his and children in a 2 story home. 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 Patient has no DME, VN or SNF useage in the past. Patient PCP is Dr. Merino
and he uses the [facility] in [place] for pharmacy needs. Patient was at ED 06/22 and returning today with continuation of concerns. Patient plan is for discharge home with no needs.
Plan; home with no needs pending medical treatment plan
[2024-06-23] MEDS: FLUSH (NSS) 1 FLUSH IV (15:55)
[2024-06-23 18:03] LABS: Amphetamines Negative (Negative); Barbiturates Negative (Negative); Benzodiazepines Positive (Negative); Buprenorphine Negative (Negative); Cocaine Negative (Negative); Marijuana Positive (Negative); Methadone Negative (Negative); Methamphetamines Negative (Negative); Opiates Negative (Negative); Phencyclidine Negative (Negative); Tricyclic Antidepressants Negative (Negative)
--- NOTE | 2024-06-23 18:34 | PTCARENOTE ---
pt transferred from ER stretcher to bed, vss, requested to shower to help with nausea, oriented to room and call pedro, will continue to monitor.
[2024-06-23 18:37] LABS: Fentanyl, Urine Negative (Negative)
[2024-06-23] MEDS: PROTONIX IV 40 MG IV (19:52)
[2024-06-23] MEDS: NSS (PRESERVATIVE FREE) 10 ML IV (19:52)
[2024-06-23] MEDS: LMX 4 1 APPLIC TOPICAL (19:54)
[2024-06-24] MEDS: ZOFRAN 4 MG IV ×3 (01:27→20:51)
[2024-06-24] MEDS: NSS 1000 IV ×2 (01:36→15:08)
[2024-06-24] MEDS: BENADRYL 25 MG IV (04:00)
[2024-06-24 06:58] LABS: Hematocrit 41.9 % (39.0-52.0); Hemoglobin 14.7 g/dL (13.0-18.0); Mean Corp Hgb Conc. 35.1 g/dL (33.0-37.0); Mean Corpuscular Hgb 30.8 pg (27.0-31.0); Mean Corpuscular Volume 87.8 fL (80.0-94.0); Mean Platelet Volume 8.9 fL (7.4-10.4); Platelet Count 263 10^3/uL (130-400); Red Blood Cell Count 4.77 10^6/uL (4.70-6.10); Red Cell Dist. Width 12.7 % (11.5-14.5); White Blood Cell Count 9.8 10^3/uL (4.8-10.8)
[2024-06-24 07:19] LABS: ALT (SGPT) 39 U/L (0-50); AST (SGOT) 75 U/L (17-59); Albumin 5.2 g/dl (3.5-5.0); Alkaline Phosphatase 62 U/L (38-126); Blood Urea Nitrogen 19 mg/dl (9-20); Calcium 9.9 mg/dl (8.4-10.2); Carbon Dioxide 26 mmol/L (22-30); Chloride 103 mmol/L (98-107); Estimated Creatinine Clearance > 125 ml/min; Glucose 117 mg/dl (70-99); Potassium 4.1 mmol/L (3.5-5.1); Sodium 142 mmol/L (135-145); Total Bilirubin 1.6 mg/dl (0.2-1.3); eGFR > 60.00
[2024-06-24 08:00] VITALS: BP 141/83
[2024-06-24] MEDS: PROTONIX IV 40 MG IV (11:01)
[2024-06-24] MEDS: PROZAC 10 MG PO (11:02)
[2024-06-24] MEDS: NSS (PRESERVATIVE FREE) 10 ML IV (11:02)
[2024-06-24] MEDS: TORADOL 15 MG IV ×2 (11:12→20:51)
[2024-06-24] MEDS: NSS IV (14:41)
--- NOTE | 2024-06-24 15:48 | W.PN.HOSP.TC ---
Today's Communication/Plan
-
Advance diet today
Assessment / Plan
Assessment / Plan
34-year-old male with past medical history of GERD, cyclic vomiting/cannabinoid hyperemesis, daily marijuana use; presented with nausea, vomiting, and abdominal discomfort.
Patient was seen previously for similar symptoms- suspected cannabinoid hyperemesis syndrome. He was treated symptomatically (Zofran x 2, Ativan, Protonix, IV fluids) and was discharged.
He returned due to persistent symptoms (N/V) and was unable to keep food down. His last use of marijuana was about 2 to 3 days prior to admission.
CT AP:
Subtle wedge-shaped decreased enhancement within the medial segment of the left lobe liver, subtly present on prior CT, although not as conspicuous. The appearance would be compatible with a perfusion anomaly, with no evidence for associated mass
lesion. No evidence for branch portal vein thrombosis.
A/P:
1. N/V/Abd pain likely vomiting/cannabinoid hyperemesis
h/o vomiting/cannabinoid hyperemesis, daily marijuana use
Symptomatic treatment and slow advancement of diet.
2. GERD
ppi
3. Mild AST elevation, cont to monitor
NPO with IVF NSS
IV Zofran PRN
Informed about hot shower to relieve GI symptoms,
Can use trial of lidocaine cream to apply to anterior abdomen for cyclic vomiting symptom
Cont PPI IV while NPO
4. Incidental finding of left liver wedge shape decreased enhancement
ED discussed with GI, recc outpt follow up
DVT ppx: SCD
Full code
Anticipated Discharge: 24 - 48 hours
Subjective/Interval History
-
Date of Service: June 24, 2024
Still has nausea today
Objective Data
-
Labs:
Laboratory Results
06/24/24
06:28
WBC 9.8
Hgb 14.7
Hct 41.9
Plt Count 263
Sodium 142
Potassium 4.1
Chloride 103
Carbon Dioxide 26
BUN 19
Creatinine 0.9
Glucose 117 H
Calcium 9.9
Total Bilirubin 1.6 H
AST 75 H
ALT 39
Alkaline Phosphatase 62
Vital Signs:
Vital Signs
Temp Pulse Resp BP Pulse Ox
99.2 F 69 16 141/83 97
06/24/24 08:00 06/24/24 08:00 06/24/24 08:00 06/24/24 08:00 06/24/24 08:00
Review of Systems
-
History Source: Patient
All other systems: Reviewed and negative
Physical Exam
-
General: Well Developed, Well Nourished, No Apparent Distress and Comfortable
HEENT: Normocephalic, Atraumatic, Nose Appears Normal and Ears Appear Normal
Respiratory: Clear to Auscultation
Cardiac: Regular Rhythm and S1/S2
GI: Soft, Nontender and Nondistended
Musculoskeletal: No Clubbing, No Cyanosis and No Edema
Skin: Warm and Dry
Neuro: Awake, Alert, Oriented and AO x 3
Psych: Calm
Data Reviewed
-
Labs: Labs Reviewed by me
[2024-06-24 16:00] VITALS: BP 159/92
[2024-06-25 00:02] VITALS: BP 160/82
[2024-06-25] MEDS: TORADOL 15 MG IV ×2 (03:01→09:48)
[2024-06-25] MEDS: ZOFRAN 4 MG IV ×2 (03:02→09:48)
[2024-06-25] MEDS: BENADRYL 25 MG IV (03:19)
[2024-06-25 06:13] LABS: Hematocrit 41.4 % (39.0-52.0); Hemoglobin 14.6 g/dL (13.0-18.0); Mean Corp Hgb Conc. 35.3 g/dL (33.0-37.0); Mean Corpuscular Hgb 30.9 pg (27.0-31.0); Mean Corpuscular Volume 87.7 fL (80.0-94.0); Mean Platelet Volume 9.2 fL (7.4-10.4); Platelet Count 241 10^3/uL (130-400); Red Blood Cell Count 4.72 10^6/uL (4.70-6.10); Red Cell Dist. Width 12.1 % (11.5-14.5); White Blood Cell Count 7.6 10^3/uL (4.8-10.8)
[2024-06-25 06:42] LABS: Blood Urea Nitrogen 15 mg/dl (9-20); Calcium 9.5 mg/dl (8.4-10.2); Carbon Dioxide 27 mmol/L (22-30); Chloride 101 mmol/L (98-107); Estimated Creatinine Clearance > 125 ml/min; Glucose 110 mg/dl (70-99); Potassium 3.6 mmol/L (3.5-5.1); Sodium 139 mmol/L (135-145); eGFR > 60.00
[2024-06-25 07:00] VITALS: BP 162/86
[2024-06-25] MEDS: PROTONIX IV 40 MG IV (08:49)
[2024-06-25] MEDS: NSS (PRESERVATIVE FREE) 10 ML IV (08:50)
[2024-06-25] MEDS: PROZAC 10 MG PO (08:50)
--- NOTE | 2024-06-25 13:18 | W.PN.HOSP.TC ---
Today's Communication/Plan
-
Discharge home
Assessment / Plan
Assessment / Plan
34-year-old male with past medical history of GERD, cyclic vomiting/cannabinoid hyperemesis, daily marijuana use; presented with nausea, vomiting, and abdominal discomfort.
Patient was seen previously for similar symptoms- suspected cannabinoid hyperemesis syndrome. He was treated symptomatically (Zofran x 2, Ativan, Protonix, IV fluids) and was discharged.
He returned due to persistent symptoms (N/V) and was unable to keep food down. His last use of marijuana was about 2 to 3 days prior to admission.
CT AP:
Subtle wedge-shaped decreased enhancement within the medial segment of the left lobe liver, subtly present on prior CT, although not as conspicuous. The appearance would be compatible with a perfusion anomaly, with no evidence for associated mass
lesion. No evidence for branch portal vein thrombosis.
A/P:
1. N/V/Abd pain likely vomiting/cannabinoid hyperemesis
h/o vomiting/cannabinoid hyperemesis, daily marijuana use
Symptomatic treatment and slow advancement of diet.
2. GERD
ppi
3. Mild AST elevation, cont to monitor
NPO with IVF NSS
IV Zofran PRN
Informed about hot shower to relieve GI symptoms,
Can use trial of lidocaine cream to apply to anterior abdomen for cyclic vomiting symptom
Cont PPI IV while NPO
4. Incidental finding of left liver wedge shape decreased enhancement
ED discussed with GI, recc outpt follow up
DVT ppx: SCD
Full code
Anticipated Discharge: Today
Subjective/Interval History
-
Date of Service: June 25, 2024
Feels well. Tolerating a low residue diet.
Objective Data
-
Labs:
Laboratory Results
06/25/24
05:42
WBC 7.6
Hgb 14.6
Hct 41.4
Plt Count 241
Sodium 139
Potassium 3.6
Chloride 101
Carbon Dioxide 27
BUN 15
Creatinine 0.8
Glucose 110 H
Calcium 9.5
Vital Signs:
Vital Signs
Temp Pulse Resp BP Pulse Ox
98.3 F 74 20 162/86 98
06/25/24 07:00 06/25/24 07:00 06/25/24 07:00 06/25/24 07:00 06/25/24 07:00
I&O
06/24/24 06/25/24 06/26/24
06:59 06:59 06:59
Intake Total 4220 / 4220
Balance 4220 / 4220
Review of Systems
-
History Source: Patient
All other systems: Reviewed and negative
Physical Exam
-
General: Well Developed, Well Nourished, No Apparent Distress and Comfortable
HEENT: Normocephalic, Nose Appears Normal and Ears Appear Normal
Respiratory: Clear to Auscultation
Cardiac: Regular Rhythm and S1/S2
GI: Soft, Nontender and Nondistended
Musculoskeletal: No Clubbing, No Cyanosis and No Edema
Skin: Warm and Dry
Neuro: Awake, Alert, Oriented and AO x 3
Psych: Calm
Data Reviewed
-
Labs: Labs Reviewed by me
--- NOTE | 2024-06-25 13:20 | W.DCSUMMARY ---
Discharge Summary
Discharge Data
Date of Admission: 06/23/24
Date of Discharge: 06/25/24
Total time spent discharging patient (in min): 41
-
Pending Results: No
Hospital Course
34-year-old male with past medical history of GERD, cyclic vomiting/cannabinoid hyperemesis, daily marijuana use; presented with nausea, vomiting, and abdominal discomfort.
Patient was seen previously for similar symptoms- suspected cannabinoid hyperemesis syndrome. He was treated symptomatically (Zofran x 2, Ativan, Protonix, IV fluids) and was discharged.
He returned due to persistent symptoms (N/V) and was unable to keep food down. His last use of marijuana was about 2 to 3 days prior to admission.
CT AP:
Subtle wedge-shaped decreased enhancement within the medial segment of the left lobe liver, subtly present on prior CT, although not as conspicuous. The appearance would be compatible with a perfusion anomaly, with no evidence for associated mass
lesion. No evidence for branch portal vein thrombosis.
A/P:
1. N/V/Abd pain likely vomiting/cannabinoid hyperemesis
h/o vomiting/cannabinoid hyperemesis, daily marijuana use
Symptomatic treatment and slow advancement of diet.
2. GERD
used ppi while npo.
Informed about hot shower to relieve GI symptoms,
Can use trial of lidocaine cream to apply to anterior abdomen for cyclic vomiting symptom
Cont PPI IV while NPO
4. Incidental finding of left liver wedge shape decreased enhancement
ED discussed with GI, recc outpt follow up
DVT ppx: SCD
Full code
Anticipated Discharge: 24 - 48 hours
NO other issues during hospitalization
Discharge Plan
-
Patient Disposition: Home (Routine Discharge)
Discharge Diagnosis/Procedures: Cyclic vomiting syndrome
Diet: As tolerated and Low Residue
Activity: No restrictions
Driving Restrictions: As prior to admission
Bathing Restrictions: None
Referrals:
Philomena,Vish I., DO [Family Provider] -
Prescriptions:
Continued
fluoxetine 10 mg Tablet
10 mg PO DAILY
ondansetron 4 mg tablet,disintegrating
4 mg PO Q8H PRN (Reason: nausea and vomiting) Qty: 9 0RF
Discharge Orders:
Discharge Patient (As Directed); Ordered 06/25/24
Ordered By: Jose Luis Epps
Discharge Date and Time
Print Language: [place]AST [place]
[2024-06-25 14:27] VITALS: BP 152/73
== END 2024-06-25 14:23 | disposition home or self-care (01) ==
LOC: 3 WEST ACU 13:00
PROVIDERS: ADMITTING PHYSICIAN Internal Medicine; ATTENDING PHYSICIAN Internal Medicine; EMERGENCY PHYSICIAN Emergency Medicine; FAMILY PHYSICIAN Internal Medicine
DX: R11.15 Cyclical vomiting syndrome unrelated to migraine (principal); R11.2 Nausea with vomiting, unspecified; F12.90 Cannabis use, unspecified, uncomplicated; K21.9 Gastro-esophageal reflux disease without esophagitis; Z87.891 Personal history of nicotine dependence
CPT/HCPCS: 74177; 80048; 80053; 80306; 80307; 82077; 83690; 83735; 85025; 85027; 93005; 96361; 96374; 96375; 96376; 99285; 99406; G0378; Q9967

== ENCOUNTER → 2024-08-08 06:33 | Outpatient (REF) | payer OTHER, SELFPAY ==
[2024-08-08 09:32] LABS: % Eosinophils 1.7 % (0-6); % Immature Granulocytes 0.3 % (0-0.5); % Lymphocytes 41.3 % (20.5-51.1); % Monocytes 9.9 % (1.7-9.3); % Neutrophils 45.8 % (42.2-75.2); Absolute Basophils 0.1 10^3/uL (0-0.2); Absolute Eosinophils 0.1 10^3/uL (0-0.7); Absolute Lymphocytes 2.4 10^3/uL (1.2-3.4); Absolute Monocytes 0.6 10^3/uL (0.1-0.6); Absolute Neutrophils 2.7 10^3/uL (1.4-6.5); Hematocrit 44.8 % (39.0-52.0); Hemoglobin 15.3 g/dL (13.0-18.0); Mean Corp Hgb Conc. 34.2 g/dL (33.0-37.0); Mean Corpuscular Hgb 30.4 pg (27.0-31.0); Mean Corpuscular Volume 89.1 fL (80.0-94.0); Mean Platelet Volume 9.2 fL (7.4-10.4); Nucleated Red Blood Cells % 0 % (-); Platelet Count 276 10^3/uL (130-400); Red Blood Cell Count 5.03 10^6/uL (4.70-6.10); Red Cell Dist. Width 12.7 % (11.5-14.5); White Blood Cell Count 5.8 10^3/uL (4.8-10.8)
[2024-08-08 09:38] LABS: ALT (SGPT) 21 U/L (0-50); AST (SGOT) 22 U/L (17-59); Albumin 4.8 g/dl (3.5-5.0); Alkaline Phosphatase 62 U/L (38-126); Blood Urea Nitrogen 12 mg/dl (9-20); Calcium 9.8 mg/dl (8.4-10.2); Carbon Dioxide 26 mmol/L (22-30); Chloride 107 mmol/L (98-107); Glucose 114 mg/dl (70-99); HDL Cholesterol 63 mg/dl; LDL Cholesterol, Calculated 149 mg/dl; Potassium 4.2 mmol/L (3.5-5.1); Sodium 141 mmol/L (135-145); Total Bilirubin 0.7 mg/dl (0.2-1.3); Total Cholesterol 238 mg/dl (50-199); Total Protein 7.8 g/dl (6.3-8.2); Triglyceride 132 mg/dl (10-149); Very Low Density Lipoprotein 26 mg/dl (0-30); eGFR > 60.00
[2024-08-08 10:02] LABS: TSH Reflex To Free T4 1.05 uIU/ml (0.47-4.68)
== END ==
LOC: HWLAB 06:33
PROVIDERS: ATTENDING PHYSICIAN Internal Medicine
DX: Z00.00 Encounter for general adult medical examination without abnormal findings (principal)
CPT/HCPCS: 36415; 80053; 80061; 84443; 85025